=== PATIENT | male | born 1945 | race Caucasian/White ===

== ENCOUNTER 2018-01-16 12:45 | Inpatient (IN) | payer OTHER ==
[~2018-01-16] VITALS: Ht 180.3 cm; Wt 57.7 kg
[2018-01-16] MEDS ORDERED: ONDANSETRON INJ 2 MG/ML 2 ML VIAL IV STA (13:10)
[2018-01-16] MEDS ORDERED: SODIUM CHLORIDE 0.9% 500ML 500 ML IV STA ×2 (13:10→15:13)
[2018-01-16] MEDS ORDERED: GLUCAGON FOR INJ 1 MG VIAL IV STA (13:10)
--- NOTE | 2018-01-16 13:33 | DIAGNOSTIC IMAGING REPORT ---
CHEST ONE VIEW PORTABLE CLINICAL HISTORY: food stuck dysphagia COMPARISON STUDY: 12/04/2015 FINDINGS: Chronic emphysematous and basilar interstitial change. Chronic apical pleural thickening primarily on the right. No new or interval finding. No focal infiltrate. IMPRESSION: Chronic emphysematous and interstitial change. No acute process. The above report was generated using voice recognition software. It may contain grammatical, syntax or spelling errors. Electronically signed by: Tulio Coats M.D. 01/16/2018 1:32 PM Dictated Date/Time: 01/16/2018 1:31 PM
[2018-01-16 14:34] LABS: BASO % 0.2 %; BASO ABS # 0.02 K/uL (0-0.2); EOS % 0.1 %; EOS ABS # 0.01 K/uL (0-0.5); HEMATOCRIT 39.4 % (42-52); HEMOGLOBIN 14.4 g/dL (14.0-18.0); LYMPH % 5.2 %; LYMPH ABS # 0.65 K/uL (1.2-3.4); MEAN CELL VOLUME 92.1 fL (80-100); MEAN CORPUSCULAR HEMOGLOBIN 33.6 pg (25-34); MEAN CORPUSCULAR HGB CONC 36.5 g/dl (32-36); MEAN PLATELET VOLUME 8.4 fL (7.4-10.4); MONO % 11.2 %; NEUT % 82.5 %; NEUT ABS # 10.27 K/uL (1.4-6.5); PLATELET COUNT 243 K/uL (130-400); RED CELL DISTRIBUTION WIDTH CV 12.3 % (11.5-14.5); RED CELL DISTRIBUTION WIDTH SD 41.6 fL (36.4-46.3); WHITE BLOOD COUNT 12.45 K/uL (4.8-10.8)
[2018-01-16 14:59] LABS: CALCIUM 9.6 mg/dl (8.5-10.1); CREATININE 0.67 mg/dl (0.60-1.40); POTASSIUM 4.5 mmol/L (3.5-5.1)
[2018-01-16] MEDS ORDERED: ONDANSETRON INJ 2 MG/ML 2 ML VIAL IV PRN (16:00)
[2018-01-16] MEDS ORDERED: LISI-729 PO (16:14)
[2018-01-16] MEDS ORDERED: LORAZEPAM 2 MG/ML 1 ML VIAL IV PRN (16:15)
[2018-01-16] MEDS ORDERED: GABAPENTIN 600 MG TAB PO SCH (16:15)
[2018-01-16] MEDS ORDERED: GABAPENTIN 600 MG TAB PO ONE (16:30)
[2018-01-16] MEDS ORDERED: LISINOPRIL 5 MG TAB PO ONE (16:30)
[2018-01-16 16:44] LABS: ALBUMIN 3.6 gm/dl (3.4-5.0); TOTAL PROTEIN 7.6 gm/dl (6.4-8.2)
[2018-01-16] MEDS: SODIUM CHLORIDE 0.9% 1000ML 1,000 ML IV SCH (16:45)
[2018-01-16] MEDS ORDERED: THIAMINE HCL INJ 100 MG in SYRINGE 9 ML IV ONE (16:45)
--- NOTE | 2018-01-16 16:59 | EMERGENCY ROOM VISIT NOTE ---
History Report prepared by Ritika: Maribel Marcum Under the Supervision of: Dr. Adonay Lima D.O. First contact with patient: 12:57 Chief Complaint: SORETHROAT Stated Complaint: CANNOT SWALLOW History of Present Illness The patient is a 72 year old male who presents to the Emergency Room with complaints of a constant sore throat since last night. The patient notes that he was eating roast beef when it started to feel like something was lodged in his throat. He states that he tried to make himself vomit, but it did not relieve the feeling. The patient notes that he can swallow his secretions, but can not swallow water, other drinks, or food since last night. He states that when he does try to eat or drink, he vomits. The patient states that the same issue happened three years ago, where he was also eating roast beef. He notes that he had a surgery to remove the food. The patient also complains of middle back pain, which does not change in severity with twisting or turning. He denies chest pain, shortness of breath, weakness, and numbness. Family also notes that he has been very weak recently. He also admits to drinking about 6- 10 beers per night. Source of History: patient Onset: Last Night Position: throat Quality: other (sore) Timing: constant Modifying Factors (Worsening): eating, drinking Associated Symptoms: + back pain, No chest pain, No SOB, No weakness, No numbness Review of Systems See HPI for pertinent positives & negatives. A total of 10 systems reviewed and were otherwise negative. Past Medical & Surgical Medical Problems: (1) Arthritis (2) Hypertension Family History Patient reports no known family medical history. Social History Smoking Status: Never Smoker Alcohol Use: occasionally Marital Status: Housing Status: lives with significant other Occupation Status: employed Current/Historical Medications Scheduled Lisinopril (Prinivil), 5 MG PO DAILY Allergies Coded Allergies: No Known Allergies (Unverified , 01/16/18) Physical Exam Vital Signs Date Time Temp Pulse Resp B/P (MAP) Pulse Ox O2 Delivery O2 Flow Rate FiO2 01/16/18 15:27 89 16 162/88 97 Room Air 01/16/18 14:15 81 18 168/78 97 Room Air 01/16/18 12:50 36.5 66 18 170/87 95 Room Air Physical Exam GENERAL: Cachectic, malnourished, sitting up in bed, disheveled EYE EXAM: normal conjunctiva. OROPHARYNX: no exudate, no erythema, lips, buccal mucosa, and tongue normal and mucous membranes are moist NECK: supple, no nuchal rigidity, no adenopathy, non-tender LUNGS: Clear to auscultation. Normal chest wall mechanics HEART: no murmurs, S1 normal and S2 normal ABDOMEN: abdomen soft, non-tender, normo-active bowel sounds, no masses, no rebound or guarding. BACK: Back is symmetrical on inspection and there is no deformity, no midline tenderness, no CVA tenderness. SKIN: no rashes and no bruising UPPER EXTREMITIES: upper extremities are grossly normal. LOWER EXTREMITIES: No pitting edema. Calves are equal bilaterally. NEURO EXAM: Normal sensorium, cranial nerves II-XII grossly intact, normal speech, no gross weakness of arms, no gross weakness of legs. Medical Decision & Procedures ER Provider Diagnostic Interpretation: Radiology results as stated below per my review and the radiologist's interpretation: CHEST ONE VIEW PORTABLE CLINICAL HISTORY: food stuck dysphagia COMPARISON STUDY: 12/04/2015 FINDINGS: Chronic emphysematous and basilar interstitial change. Chronic apical pleural thickening primarily on the right. No new or interval finding. No focal infiltrate. IMPRESSION: Chronic emphysematous and interstitial change. No acute process. The above report was generated using voice recognition software. It may contain grammatical, syntax or spelling errors. Electronically signed by: Tulio Coats M.D. 01/16/2018 1:32 PM Dictated Date/Time: 01/16/2018 1:31 PM Laboratory Results Test 01/16/18 13:15 01/16/18 13:51 Magnesium Level 2.0 mg/dl (1.8-2.4) Total Bilirubin 0.8 mg/dl (0.2-1) Direct Bilirubin 0.3 mg/dl (0-0.2) Aspartate Amino Transf (AST/SGOT) 41 U/L (15-37) Alanine Aminotransferase (ALT/SGPT) 38 U/L (12-78) Alkaline Phosphatase 102 U/L (45-117) Total Protein 7.6 gm/dl (6.4-8.2) Albumin 3.6 gm/dl (3.4-5.0) Lipase 109 U/L (73-393) Immature Granulocyte % (Auto) 0.8 % White Blood Count 12.45 K/uL (4.8-10.8) Red Blood Count 4.28 M/uL (4.7-6.1) Hemoglobin 14.4 g/dL (14.0-18.0) Hematocrit 39.4 % (42-52) Mean Corpuscular Volume 92.1 fL (80-100) Mean Corpuscular Hemoglobin 33.6 pg (25-34) Mean Corpuscular Hemoglobin Concent 36.5 g/dl (32-36) Platelet Count 243 K/uL (130-400) Mean Platelet Volume 8.4 fL (7.4-10.4) Neutrophils (%) (Auto) 82.5 % Lymphocytes (%) (Auto) 5.2 % Monocytes (%) (Auto) 11.2 % Eosinophils (%) (Auto) 0.1 % Basophils (%) (Auto) 0.2 % Neutrophils # (Auto) 10.27 K/uL (1.4-6.5) Lymphocytes # (Auto) 0.65 K/uL (1.2-3.4) Monocytes # (Auto) 1.40 K/uL (0.11-0.59) Eosinophils # (Auto) 0.01 K/uL (0-0.5) Basophils # (Auto) 0.02 K/uL (0-0.2) Immature Granulocyte # (Auto) 0.10 K/uL (0.00-0.02) Laboratory results per my review. Medications Administered Medications (Trade) Dose Ordered Sig/Jose Route Start Time Stop Time Status Last Admin Dose Admin Glucagon (Glucagon Inj) 1 mg NOW STAT IV 01/16/18 13:10 01/16/18 13:12 DC 01/16/18 13:49 1 MG Ondansetron HCl (Zofran Inj) 4 mg NOW STAT IV 01/16/18 13:10 01/16/18 13:12 DC 01/16/18 13:48 4 MG Sodium Chloride 500 ml @ 999 mls/hr Q31M STAT IV 01/16/18 13:10 01/16/18 13:40 DC 01/16/18 13:48 999 MLS/HR Sodium Chloride 500 ml @ 999 mls/hr Q31M STAT IV 01/16/18 15:13 01/16/18 15:43 DC 01/16/18 15:28 999 MLS/HR ECG Per My Interpretation Indication: back/shoulder pain Rate (beats per minute): 81 Rhythm: sinus rhythm Findings: other (normal axis, no PVCs) ED Course ED COURSE: Vital signs were reviewed and showed situational hypertension. The patients medical record was reviewed The above diagnostic studies were performed and reviewed. ED treatments and interventions as stated above. 1302: The patient was evaluated in room A2. A complete history and physical examination was performed. 1310: Ordered NSS 500 ml @ 999 mls/hr IV, Zofran Inj 4 mg IV, Glucagon 1 mg IV. 1447: I reevaluated the patient at this time. He was able to tolerate a glass of water. 1507: Upon reevaluation, the patient is resting comfortably. I discussed my findings with the patient and he understands and agrees with the treatment plan. Based on the patients age, coexisting illnesses, exam and lab findings the decision to treat as an inpatient was made. The patient remained stable while under my care. The patient will be evaluated for further management. 1510: I discussed the patient's case with Dante Cerna [facility] Hospitalist. She will evaluate the patient for further management. 1513: Ordered NSS 500 ml @ 999 mls/hr IV. Medical Decision Differential Diagnosis includes but is not limited to dehydration, stroke, anemia, hypoglycemia, hyponatremia, hypernatremia, urinary tract infection, pneumonia, bronchitis, sepsis, gastroenteritis, additional abdominal pathology, metabolic abnormalities and infections. Patient is a 9-year-old male who presents the ER for inability to swallow. He notes that last night he was eating beef and he felt something is stuck. Since then he is only been able to tolerate secretions. Onset this he notes has been feeling very weak. He was given IV along with glucagon. He had complete resolution of his symptoms of the food bolus. He has had that before in the past. CBC and BMP shows sodium of 124. Bilirubin, LFTs and lipase was normal. Chest x-ray was unremarkable. Patient/family were updated at bedside. Patient was given fluids. Patient was admitted to internal medicine for further workup. Medication Reconcilliation Current Medication List: was personally reviewed by me Blood Pressure Screening Patient's blood pressure: Elevated blood pressure Blood pressure disposition: Elevated BP felt to be situational Consults Time Called: 1505 Consulting Physician: Dante Cerna Returned Call: 1510 I discussed the patient's case with Dante Cerna. She will evaluate the patient for further management. Impression Primary Impression: Esophageal foreign body Additional Impressions: Hyponatremia Weak Scribe Attestation The scribe's documentation has been prepared under my direction and personally reviewed by me in its entirety. I confirm that the note above accurately reflects all work, treatment, procedures, and medical decision making performed by me. Departure Information Dispostion Being Evaluated By Hospitalist Referrals Naomi Blandon C.R.N.P. (PCP) Patient Instructions My [facility] Problem Qualifiers Primary Impression: Esophageal foreign body Encounter type: initial encounter Qualified Codes: T18.108A - Unspecified foreign body in esophagus causing other injury, initial encounter
--- NOTE | 2018-01-16 17:05 | History and Physical ---
History & Physical Date & Time of Service: Jan 16, 2018 ~ 15:30 Chief Complaint: Cannot Swallow Primary Care Physician: [facility] History of Present Illness Source: patient 72-year-old male who presents the ED with reports of difficulty swallowing. Patient reports he had roast beef for dinner last night. He reports that he had taken a bite and some got stuck in his throat. He reports he was able to take small sips of water however anything larger he would have to spit up. He reports he was able to swallow his own secretions. He tried to self induce vomiting however that did not resolve his symptoms. Symptoms persisted through to today and patient presented to the ER for further evaluation. He denies chest pain and shortness of breath. No lightheadedness, dizziness, diaphoresis , syncopal events. He denies abdominal pain, nausea, vomiting, diarrhea. Patient reports that he has had a poor appetite recently and that he has had a significant amount of weight loss however he is unsure of the exact amount. He also has been having generalized weakness and has had about 4 falls in the past 6-8 weeks. These fall seem to be mechanical. Patient denies any unilateral weakness, numbness, tingling. Patient drinks 6-10 cans of beer per day. He denies any other recent illnesses, fevers, chills. He denies any urinary symptoms. In the ED, patient was given IV glucagon and had improvement in his symptoms. Labs show hyponatremia with sodium of 124. Patient is hemodynamically stable. Past Medical/Surgical History Medical Problems: (1) Arthritis Status: Chronic (2) Hypertension Status: Chronic Family History FH: diabetes mellitus FATHER FH: liver cancer FATHER FH: prostate cancer BROTHER FHx: sudden of unknown cause BROTHER (62) Social History Smoking Status: Former Smoker Alcohol Use: 6-12 cans of beer/day Marital Status: Housing status: lives with family Occupational Status: employed Allergies Coded Allergies: No Known Allergies (Unverified , 01/16/18) Home Medications Scheduled Lisinopril (Prinivil), 5 MG PO DAILY Review of Systems ROS per HPI, all other systems reviewed and negative Physical Exam Vital Signs Date Time Temp Pulse Resp B/P (MAP) Pulse Ox O2 Delivery O2 Flow Rate FiO2 01/16/18 16:35 94 16 158/92 96 Room Air 01/16/18 15:27 89 16 162/88 97 Room Air 01/16/18 14:15 81 18 168/78 97 Room Air 01/16/18 12:50 36.5 66 18 170/87 95 Room Air General Appearance: WD/WN, no apparent distress Head: normocephalic, atraumatic Eyes: normal inspection, EOMI, sclerae normal ENT: hearing grossly normal, + pertinent finding (Mucous membranes moist) Neck: supple, no JVD, trachea midline Respiratory/Chest: lungs clear, normal breath sounds, no respiratory distress Cardiovascular: regular rate, rhythm, no edema, normal peripheral pulses Abdomen/GI: normal bowel sounds, non tender, soft, no organomegaly Extremities/Musculoskelatal: normal inspection, no calf tenderness, normal capillary refill Neurologic/Psych: no motor/sensory deficits, alert, normal mood/affect, oriented x 3 Skin: normal color, warm/dry Diagnostics Laboratory Results Results Past 24 Hours Test 01/16/18 13:15 01/16/18 13:51 01/16/18 16:32 Range/Units White Blood Count 12.45 4.8-10.8 K/uL Red Blood Count 4.28 4.7-6.1 M/uL Hemoglobin 14.4 14.0-18.0 g/dL Hematocrit 39.4 42-52 % Mean Corpuscular Volume 92.1 80-100 fL Mean Corpuscular Hemoglobin 33.6 25-34 pg Mean Corpuscular Hemoglobin Concent 36.5 32-36 g/dl Platelet Count 243 130-400 K/uL Mean Platelet Volume 8.4 7.4-10.4 fL Neutrophils (%) (Auto) 82.5 % Lymphocytes (%) (Auto) 5.2 % Monocytes (%) (Auto) 11.2 % Eosinophils (%) (Auto) 0.1 % Basophils (%) (Auto) 0.2 % Neutrophils # (Auto) 10.27 1.4-6.5 K/uL Lymphocytes # (Auto) 0.65 1.2-3.4 K/uL Monocytes # (Auto) 1.40 0.11-0.59 K/uL Eosinophils # (Auto) 0.01 0-0.5 K/uL Basophils # (Auto) 0.02 0-0.2 K/uL RDW Standard Deviation 41.6 36.4-46.3 fL RDW Coefficient of Variation 12.3 11.5-14.5 % Immature Granulocyte % (Auto) 0.8 % Immature Granulocyte # (Auto) 0.10 0.00-0.02 K/uL Sodium Level 124 136-145 mmol/L Potassium Level 4.5 3.5-5.1 mmol/L Chloride Level 87 98-107 mmol/L Carbon Dioxide Level 29 21-32 mmol/L Anion Gap 8.0 3-11 mmol/L Blood Urea Nitrogen 9 7-18 mg/dl Creatinine 0.67 0.60-1.40 mg/dl Est Creatinine Clear Calc Drug Dose 82.9 ml/min Estimated GFR () 112.8 Estimated GFR (Non- 97.4 BUN/Creatinine Ratio 13.6 10-20 Random Glucose 97 70-99 mg/dl Calcium Level 9.6 8.5-10.1 mg/dl Diagnostic Radiology CXR IMPRESSION: Chronic emphysematous and interstitial change. No acute process. Impression Assessment and Plan HYPONATREMIA -Admit to telemetry -Patient presenting from home with a food bolus, was given IV glucagon in the ED and had resolution of symptoms however incidentally found to be hyponatremic with sodium of 124 -Patient with history of alcohol abuse and also recent poor appetite which are both likely contributing patient's hyponatremia -S/P 1 liter NSS in ED; will start NSS at 100 cc an hour and follow sodium levels closely -Check urine and serum osmolality and urine sodium FOOD BOLUS -Given IV glucagon ED with resolution of symptoms -History of similar event in 11/2017, underwent EGD with retrieval of food bolus , EGD also demonstrated hiatal hernia and esophagitis -patient was to have follow-up EGD in 8 weeks however that was not completed -Consult GI for EGD follow-up ALCOHOL ABUSE -Patient drinks 6-10 cans of beer/day -Patient denies history of withdrawal symptoms in the past -Will start alcohol withdrawal protocol with gabapentin, multivitamin, thiamine , folic acid WEIGHT LOSS -Patient reporting poor appetite and is significant amount of weight loss for the past couple of months -CT ABD/pelvis -GI consult HYPERTENSION -BP is somewhat elevated however improving without intervention -Continue lisinopril DVT PROPHYLAXIS -SQ Lovenox DISPOSITION -In my clinical judgment this beneficiary meets acute admission criteria, established by [facility], that includes being hospitalized through two midnights. ATTENDING ADDENDUM This is a 72-year-old male follows [facility] Presented with choking sensation after eating dinner last night Lab work showed hyponatremia with sodium of 124 Patient admits of drinking heavily Also on intentional weight loss in past few months secondary to poor appetite Hyponatremia: Possibly secondary to alcohol abuse/worsened with poor p.o. intake dehydration IV fluids with normal saline Follow PRP closely Nephrology consult requested Choking with food : Prior episode of similar event on 11/2017: Underwent EGD : Showed hiatal hernia with esophagitis, food bolus removed Patient did not follow-up for EGD in 8 weeks Order for GI eval Speech evaluation to assess dysphagia Alcohol abuse Reports of drinking 610 cans beer every day Last drink was yesterday Monitoring telemetry, with alcohol withdrawal protocol Weight loss Reports of poor appetite CT abdomen pelvis does not show any pathology Possible secondary to chronic alcohol abuse Patient does not recall of having screening colonoscopy GI consulted Please refer to further documentation by Alyson MARTINEZ for discussion of other chronic issues Milli Alex MD Resuscitation Status VTE Prophylaxis Will order VTE Prophylaxis: Yes
[2018-01-16] MEDS: MULTIVITAMIN TAB PO SCH (17:16)
[2018-01-16 17:18] LABS: CALCIUM 8.5 mg/dl (8.5-10.1); CREATININE 0.62 mg/dl (0.60-1.40); POTASSIUM 4.3 mmol/L (3.5-5.1)
[2018-01-16 17:38] VITALS: BP 174/83; PULSE 97; TEMP 36.5; O2SAT 99; BMI 17.6
[2018-01-16] MEDS ORDERED: OPTIRAY 320 IV PRN (17:45)
[2018-01-16 18:04] LABS: SODIUM RANDOM URINE 26 mEq/L
[2018-01-16 18:52] LABS: OSMOLALITY,URINE 427 mOms/kg (500-800)
--- NOTE | 2018-01-16 19:26 | DIAGNOSTIC IMAGING REPORT ---
ABDOMEN AND PELVIS CT WITH IV AND ORAL CONTRAST CT DOSE: 256.09 mGy.cm HISTORY: unintentional weight loss TECHNIQUE: Multiaxial CT images of the abdomen and pelvis were performed following the use of intravenous and oral contrast. A dose lowering technique was utilized adhering to the principles of ALARA. COMPARISON STUDY: None. FINDINGS: Emphysema at the lung bases. Scattered small patchy groundglass densities within the lower lobes, right greater than left. This favors a mild pneumonitis. No pneumoperitoneum. No pneumatosis. Severe degenerative changes within the right hip. Bilateral L5 spondylolysis. There is a right hip effusion. There is hepatic steatosis. No hepatic or splenic masses. The adrenal glands, pancreas, gallbladder, and kidneys are unremarkable. No hydronephrosis. There is a left retroaortic renal vein. A few calcified periportal lymph nodes. Calcified plaque within the normal caliber abdominal aorta. Mild bladder wall thickening. Colonic diverticulosis. No bowel wall thickening or obstruction. Normal appendix. Mild motion artifact. IMPRESSION: 1. No bowel wall thickening or obstruction. 2. Normal appendix. 3. Colonic diverticulosis. 4. Hepatic steatosis. 5. Mild bladder wall thickening. This may be chronic. Recommend correlation with urinalysis. 6. Severe right hip osteoarthritis with associated hip effusion. 7. Small patchy groundglass densities within the bilateral lower lobes. This may represent a low-grade pneumonia. Electronically signed by: Jorgito Aguila M.D. 01/16/2018 7:25 PM Dictated Date/Time: 01/16/2018 7:16 PM
[2018-01-16 20:31] VITALS: BP 164/65; PULSE 90; TEMP 36.4; O2SAT 94
[2018-01-16] MEDS: GABAPENTIN 600MG Q6H DOSE PO SCH (21:09)
[2018-01-16] MEDS: ENOXAPARIN 40 MG/0.4 ML SYR SC SCH (21:12)
[2018-01-16 21:49] LABS: CALCIUM 8.6 mg/dl (8.5-10.1); CREATININE 0.67 mg/dl (0.60-1.40); POTASSIUM 3.5 mmol/L (3.5-5.1)
[2018-01-16 23:27] VITALS: BP 137/69; PULSE 101; TEMP 37.3; O2SAT 95
[2018-01-17 02:24] LABS: HEMOGLOBIN 13.4 g/dL (14.0-18.0); MEAN CELL VOLUME 92.2 fL (80-100); MEAN CORPUSCULAR HEMOGLOBIN 32.5 pg (25-34); MEAN CORPUSCULAR HGB CONC 35.3 g/dl (32-36); MEAN PLATELET VOLUME 8.3 fL (7.4-10.4); PLATELET COUNT 198 K/uL (130-400); RED CELL DISTRIBUTION WIDTH CV 12.3 % (11.5-14.5); RED CELL DISTRIBUTION WIDTH SD 41.8 fL (36.4-46.3); WHITE BLOOD COUNT 13.12 K/uL (4.8-10.8)
[2018-01-17 02:50] LABS: CALCIUM 8.1 mg/dl (8.5-10.1); CREATININE 0.48 mg/dl (0.60-1.40); POTASSIUM 3.9 mmol/L (3.5-5.1)
[2018-01-17] MEDS: GABAPENTIN 600MG Q6H DOSE PO SCH (03:47)
[2018-01-17 04:00] VITALS: BP 161/75; PULSE 86; TEMP 37.1; O2SAT 92
[2018-01-17] MEDS: SODIUM CHLORIDE 0.9% 1000ML 1,000 ML IV SCH ×2 (06:18→17:32)
[2018-01-17 07:37] VITALS: BP 150/74; PULSE 93; TEMP 37.4; O2SAT 93
[2018-01-17] MEDS: THIAMINE HCL INJ 100 MG in SYRINGE 9 ML IV SCH ×2 (08:03→08:25)
[2018-01-17] MEDS: GABAPENTIN 600MG Q8H DOSE PO SCH ×2 (08:03→21:42)
[2018-01-17] MEDS: GUAIFENESIN/DEXTROM SYRUP 100MG/10MG 5ML UDC PO PRN ×2 (08:03→21:43)
[2018-01-17] MEDS: MULTIVITAMIN TAB PO SCH (08:04)
[2018-01-17] MEDS: LISINOPRIL 5 MG TAB PO SCH (08:04)
[2018-01-17 11:08] VITALS: BP 162/68; PULSE 78; TEMP 37; O2SAT 91
--- NOTE | 2018-01-17 12:54 | Progress Note ---
Internal Med Progress Note Date of Service: Jan 17, 2018. Provider Documentation: SUBJECTIVE: Seen and examined at bedside Feels well Denies chest pain, SOB, dizziness, abd pain, odynophagia Family at bedside No complaints OBJECTIVE: Vital Signs-as noted below Physical Exam: General Appearance:Thin, no apparent distress Head: normocephalic, Atraumatic Eyes: normal inspection, EOMI, PERRL Neck: supple, Trachea midline Respiratory/Chest: Normal breath sounds, CTA Cardiovascular: S1, S2, No murmur Abdomen/GI:Soft, Non tender, Bowel sounds present Extremities/Musculoskelatal:normal inspection, no edema Neurologic/Psych:AAOX3, grossly no focal neurological deficits Skin: normal color, warm Lab data as noted below. ASSESSMENT & PLAN: Chronic Hyponatremia Likely secondary to alcohol abuse and partly dehydration, DD:SIADH No confusion issues per family Continue IV fluids for now Check TSH, Free T4 Nephrology consulted Dysphagia Food Bolus S/P IV glucagon ED with resolution of symptoms History of similar event in 11/2015, EGD at the [facility] showed hiatal hernia and esophagitis Needs swallow eval GI consulted Reports history of weight loss. May need colonoscopy as outpatient Alcohol Abuse Patient drinks 6-10 cans of beer a day continue alcohol withdrawal protocol with gabapentin continue multivitamin, thiamine, folic acid HTN: Mildly elevated Asymptomatic Continue lisinopril Right hip osteoarthritis H/O falls Follow up with Orthopedics as outpatient PT/OT DVT Px SQ Lovenox Disposition: PT/OT Vital Signs: Date Time Temp Pulse Resp B/P (MAP) Pulse Ox O2 Delivery O2 Flow Rate FiO2 01/17/18 11:08 37.0 78 18 162/68 (99) 91 Room Air 01/17/18 08:00 Room Air 01/17/18 07:37 37.4 93 18 150/74 (99) 93 Room Air 01/17/18 04:00 37.1 86 19 161/75 (103) 92 Room Air 01/17/18 00:00 Room Air 01/16/18 23:27 37.3 101 16 137/69 (91) 95 01/16/18 20:31 36.4 90 18 164/65 (98) 94 Room Air 01/16/18 20:00 Room Air 01/16/18 17:38 36.5 97 20 174/83 99 Room Air 01/16/18 16:35 94 16 158/92 96 Room Air 01/16/18 15:27 89 16 162/88 97 Room Air 01/16/18 14:15 81 18 168/78 97 Room Air Lab Results: Results Past 24 Hours Test 01/16/18 13:15 01/16/18 13:51 01/16/18 16:32 01/16/18 17:29 Range/Units Magnesium Level 2.0 1.8-2.4 mg/dl Total Bilirubin 0.8 0.2-1 mg/dl Direct Bilirubin 0.3 0-0.2 mg/dl Aspartate Amino Transf (AST/SGOT) 41 15-37 U/L Alanine Aminotransferase (ALT/SGPT) 38 12-78 U/L Alkaline Phosphatase 102 45-117 U/L Total Protein 7.6 6.4-8.2 gm/dl Albumin 3.6 3.4-5.0 gm/dl Lipase 109 73-393 U/L White Blood Count 12.45 4.8-10.8 K/uL Red Blood Count 4.28 4.7-6.1 M/uL Hemoglobin 14.4 14.0-18.0 g/dL Hematocrit 39.4 42-52 % Mean Corpuscular Volume 92.1 80-100 fL Mean Corpuscular Hemoglobin 33.6 25-34 pg Mean Corpuscular Hemoglobin Concent 36.5 32-36 g/dl Platelet Count 243 130-400 K/uL Mean Platelet Volume 8.4 7.4-10.4 fL Neutrophils (%) (Auto) 82.5 % Lymphocytes (%) (Auto) 5.2 % Monocytes (%) (Auto) 11.2 % Eosinophils (%) (Auto) 0.1 % Basophils (%) (Auto) 0.2 % Neutrophils # (Auto) 10.27 1.4-6.5 K/uL Lymphocytes # (Auto) 0.65 1.2-3.4 K/uL Monocytes # (Auto) 1.40 0.11-0.59 K/uL Eosinophils # (Auto) 0.01 0-0.5 K/uL Basophils # (Auto) 0.02 0-0.2 K/uL RDW Standard Deviation 41.6 36.4-46.3 fL RDW Coefficient of Variation 12.3 11.5-14.5 % Immature Granulocyte % (Auto) 0.8 % Immature Granulocyte # (Auto) 0.10 0.00-0.02 K/uL Sodium Level 124 126 136-145 mmol/L Potassium Level 4.5 4.3 3.5-5.1 mmol/L Chloride Level 87 92 98-107 mmol/L Carbon Dioxide Level 29 26 21-32 mmol/L Anion Gap 8.0 8.0 3-11 mmol/L Blood Urea Nitrogen 9 9 7-18 mg/dl Creatinine 0.67 0.62 0.60-1.40 mg/dl Est Creatinine Clear Calc Drug Dose 82.9 89.5 ml/min Estimated GFR () 112.8 116.5 Estimated GFR (Non- 97.4 100.5 BUN/Creatinine Ratio 13.6 14.1 10-20 Random Glucose 97 89 70-99 mg/dl Calcium Level 9.6 8.5 8.5-10.1 mg/dl Prothrombin Time 11.0 9.0-12.0 SECONDS Prothromb Time International Ratio 1.0 0.9-1.1 Osmolality 263 280-300 mOsm/kg Ethyl Alcohol mg/dL < 3.0 0-3 mg/dl Urine Osmolality 427 500-800 mOms/kg Urine Random Sodium 26 mEq/L Test 01/16/18 21:05 01/17/18 02:03 Range/Units Sodium Level 125 125 136-145 mmol/L Potassium Level 3.5 3.9 3.5-5.1 mmol/L Chloride Level 90 92 98-107 mmol/L Carbon Dioxide Level 28 27 21-32 mmol/L Anion Gap 6.0 6.0 3-11 mmol/L Blood Urea Nitrogen 9 7 7-18 mg/dl Creatinine 0.67 0.48 0.60-1.40 mg/dl Est Creatinine Clear Calc Drug Dose 82.9 115.7 ml/min Estimated GFR () 112.8 129.4 Estimated GFR (Non- 97.4 111.7 BUN/Creatinine Ratio 12.7 14.3 10-20 Random Glucose 157 91 70-99 mg/dl Calcium Level 8.6 8.1 8.5-10.1 mg/dl White Blood Count 13.12 4.8-10.8 K/uL Red Blood Count 4.12 4.7-6.1 M/uL Hemoglobin 13.4 14.0-18.0 g/dL Hematocrit 38.0 42-52 % Mean Corpuscular Volume 92.2 80-100 fL Mean Corpuscular Hemoglobin 32.5 25-34 pg Mean Corpuscular Hemoglobin Concent 35.3 32-36 g/dl RDW Standard Deviation 41.8 36.4-46.3 fL RDW Coefficient of Variation 12.3 11.5-14.5 % Platelet Count 198 130-400 K/uL Mean Platelet Volume 8.3 7.4-10.4 fL
--- NOTE | 2018-01-17 14:16 | Gastrointestinal Consultation ---
Gastrointestinal Consultation Date of Consultation: Jan 17, 2018 Attending Physician: Dr Adan Segura Consulting Physician: Dr Manoj Mejia Reason for Consultation: dysphagia, wt loss History of Present Illness CC food stuck HPI with patient for H and P. Pt seen by me when he came to ER 11/2015 for food bolus impaction. EGD at that time food in esophagus removed, grade B esophagitis, and erythema of antrum, 2 cm HH and duodenal bulb erosions. Repeat EGD recommended in 8 weeks but not done. Pt has has not had problems getting food from mouth into esophagus but has has had solid bolus slowing since then. However, yesterday is the first time since 2015 food stuck to the point he needed to go to ER. He was eating roast beef and could handle saliva but only could drink small sips. He was given glucagon and symptoms resolved but admitted secondary to low Na. He drinks 6-10 beers daily. He states has lost 9 lbs of wt in 2 weeks. States not eating well but denies nausea or abd pain. No change in bowels. No bloody nor black stools. CXR on admit COPD and chronic interstitial changes. CT a/p COPD, DJD, colon diverticulosis, fatty liver. Hgb on admit normal with slight drop post IVF. Some weakness also recently with falling. Past Medical/Surgical History Medical Problems: (1) Esophageal foreign body Status: Acute (2) Hyponatremia Status: Acute (3) Weak Status: Acute Family History FH: diabetes mellitus FATHER FH: liver cancer FATHER FH: prostate cancer BROTHER FHx: sudden of unknown cause BROTHER (62) Social History Smoking Status: Former Smoker Alcohol Use: heavy Marital Status: Housing Status: lives with significant other Occupation Status: employed Allergies Coded Allergies: No Known Allergies (Unverified , 01/16/18) Current Medications Home Meds and Scripts Medications Dose Route/Sig Max Daily Dose Days Date Category Prinivil (Lisinopril) 5 Mg Tab 5 Mg PO DAILY 01/16/18 Reported Review of Systems See HPI otherwise 10 ROS neg Physical Exam Date Time Temp Pulse Resp B/P (MAP) Pulse Ox O2 Delivery O2 Flow Rate FiO2 01/17/18 11:08 37.0 78 18 162/68 (99) 91 Room Air 01/17/18 08:00 Room Air 01/17/18 07:37 37.4 93 18 150/74 (99) 93 Room Air 01/17/18 04:00 37.1 86 19 161/75 (103) 92 Room Air 01/17/18 00:00 Room Air 01/16/18 23:27 37.3 101 16 137/69 (91) 95 01/16/18 20:31 36.4 90 18 164/65 (98) 94 Room Air 01/16/18 20:00 Room Air 01/16/18 17:38 36.5 97 20 174/83 99 Room Air 01/16/18 16:35 94 16 158/92 96 Room Air 01/16/18 15:27 89 16 162/88 97 Room Air 01/16/18 14:15 81 18 168/78 97 Room Air General Appearance: WD/WN, no apparent distress Eyes: normal inspection, PERRL ENT: normal ENT inspection, hearing grossly normal Neck: supple, trachea midline Respiratory/Chest: lungs clear, no respiratory distress Cardiovascular: no edema, no murmur Abdomen: normal bowel sounds, non tender, soft, no organomegaly Extremities: non-tender 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, normal mood/affect, oriented x 3 Skin: normal color, warm/dry Laboratory Results Last 24 Hours Test 01/16/18 16:32 01/16/18 17:29 01/16/18 21:05 01/17/18 02:03 Prothrombin Time 11.0 SECONDS Prothromb Time International Ratio 1.0 Sodium Level 126 mmol/L 125 mmol/L 125 mmol/L Potassium Level 4.3 mmol/L 3.5 mmol/L 3.9 mmol/L Chloride Level 92 mmol/L 90 mmol/L 92 mmol/L Carbon Dioxide Level 26 mmol/L 28 mmol/L 27 mmol/L Anion Gap 8.0 mmol/L 6.0 mmol/L 6.0 mmol/L Blood Urea Nitrogen 9 mg/dl 9 mg/dl 7 mg/dl Creatinine 0.62 mg/dl 0.67 mg/dl 0.48 mg/dl Est Creatinine Clear Calc Drug Dose 89.5 ml/min 82.9 ml/min 115.7 ml/min Estimated GFR () 116.5 112.8 129.4 Estimated GFR (Non- 100.5 97.4 111.7 BUN/Creatinine Ratio 14.1 12.7 14.3 Random Glucose 89 mg/dl 157 mg/dl 91 mg/dl Osmolality 263 mOsm/kg Calcium Level 8.5 mg/dl 8.6 mg/dl 8.1 mg/dl Ethyl Alcohol mg/dL < 3.0 mg/dl Urine Osmolality 427 mOms/kg Urine Random Sodium 26 mEq/L White Blood Count 13.12 K/uL Red Blood Count 4.12 M/uL Hemoglobin 13.4 g/dL Hematocrit 38.0 % Mean Corpuscular Volume 92.2 fL Mean Corpuscular Hemoglobin 32.5 pg Mean Corpuscular Hemoglobin Concent 35.3 g/dl RDW Standard Deviation 41.8 fL RDW Coefficient of Variation 12.3 % Platelet Count 198 K/uL Mean Platelet Volume 8.3 fL Test 01/17/18 13:58 Impression esophageal dysphagia--recommend EGD with prn dilatation to start instead of videofluoro study and barium esophagram so will schedule that with DR Farley tomorrow. Proc and risks explained which include but not limited to med reaction , bleeding, perforation, aspiration, and missed lesions. wt loss--CT neg. See what EGD shows but may need outpt colonoscopy normocytic anemia--mild--check Fe sat, B12, folate, and ferritin hx of esophagitis---PPI ETOH abuse--recommend he stop Hyponatremia--per primary I am going off service tomorrow 01/[address] Farley is assuming GI care then.
[2018-01-17 14:36] LABS: CALCIUM 8.6 mg/dl (8.5-10.1); CREATININE 0.43 mg/dl (0.60-1.40)
[2018-01-17 14:50] VITALS: Ht 180.3 cm; Wt 57.7 kg
[2018-01-17] MEDS ORDERED: FUROSEMIDE INJ 40 MG in SYRINGE 0 ML IV ONE (15:00)
[2018-01-17 16:12] VITALS: BP 168/81; PULSE 84; TEMP 36.2; O2SAT 97
[2018-01-17 16:48] LABS: SODIUM RANDOM URINE 105 mEq/L
[2018-01-17 16:50] LABS: OSMOLALITY,URINE 311 mOms/kg (500-800)
[2018-01-17 19:32] LABS: CALCIUM 8.8 mg/dl (8.5-10.1); CREATININE 0.52 mg/dl (0.60-1.40); POTASSIUM 3.7 mmol/L (3.5-5.1)
[2018-01-17 20:16] VITALS: BP 144/73; PULSE 80; TEMP 36.9; O2SAT 92
[2018-01-17] MEDS: ENOXAPARIN 40 MG/0.4 ML SYR SC SCH (21:43)
[2018-01-17] MEDS: PANTOprazole SOD 40 MG TAB PO SCH (21:43)
[2018-01-17] MEDS: SODIUM CHLORIDE 1 GM TAB PO SCH (21:45)
--- NOTE | 2018-01-17 23:10 | NEPHROLOGY CONSULTATION ---
DATE OF CONSULTATION: 01/17/2018 REASON FOR CONSULT: Hyponatremia. HISTORY OF PRESENT ILLNESS: Patient is a 72-year-old male who presented to the Emergency Department yesterday with reports of dysphagia. Apparently, he had a roast beef for dinner last night and he felt the food got stuck in his food pipe. He was not having choking or respiratory symptoms at the time. Symptoms persisted, so he presented to the Emergency Department. Serum sodium was noted to be low at 124. Patient and his do not think that he has had a history of low Sodium in the past. [facility] and gets full panel of blood work at least once a year and was never told he had low sodium. He drinks about 10 beers every single day. For the last few weeks, he has been having multiple falls without syncope. He has had slightly poor appetite and about 10 pound weight loss in the last few weeks. Since admission, he has received normal saline--now about 24 hrs but it does not seem to have changed the serum sodium at all. The last 5 serum sodium reading has been in a pretty tight range of 124-126. He is not in fluid restriction as of now. PAST MEDICAL/SURGICAL HISTORY: Arthritis, hypertension, and alcohol abuse. FAMILY HISTORY: Positive for diabetes, liver cancer, prostate cancer, sudden cardiac . SOCIAL HISTORY: Former smoker. Alcohol ongoing about 10 beers every single day. , lives with family. Employed. ALLERGIES: No known drug allergies. REVIEW OF SYSTEMS: As detailed in the HPI, unless stated otherwise. 12 systems reviewed and negative. MEDICATIONS: Home medications include just lisinopril 5 mg daily. PHYSICAL EXAMINATION: VITAL SIGNS: Blood pressure 162/60, 91% on room air, pulse rate 78 per minute, temperature 37 degrees Celsius. GENERAL: Elderly white male who is not in any distress. He is awake, alert, oriented x3. HEENT: Mucous membrane is moist. NECK: Supple. No jugular venous distention. CHEST: Bilateral prolonged expiration. Occasional wheezing. CARDIOVASCULAR SYSTEM: S1 and S2 distant. No edema. Normal pulses. GASTROINTESTINAL: Abdomen is soft and nontender. EXTREMITIES: No edema. NEUROLOGIC: Awake, alert, oriented x3. Normal speech. No motor or sensory deficit. SKIN: Normal color, warm, dry. LABORATORY DATA: Serum sodium 124 at the time of admission, and in about 24-hour time period, it has gone up by 2 and the most recent one is 126. Potassium 4.0, BUN 4, creatinine 0.4, serum osmolality 260, urine osmolality 427, urine sodium 26. IMAGING: Abdominal and pelvis CT scan was reviewed in detail. Chest x-ray does not show congestive heart failure, but it does show some chronic emphysematous and interstitial changes suggestive of COPD. ASSESSMENT AND PLAN: A 72-year-old male whom I have been consulted for evaluation and treatment of hyponatremia. Hyponatremia: Serum osm is low so this is true hYponatremia. he appears euvolemic . Urine osmolality is definitely high suggestive of SIADH, but then, the urine sodium was initially low, which goes more in favor of true Sodium deficit. . In any case, he has received IV fluid for almost a day now with no change in serum Sodium. At this time, his blood pressure is running high, so I do not think he is volume depleted anymore. The etiology of hyponatremia is probably multifactorial. New onset nausea and pain can cause SIADH, especially in susceptible patients with COPD. On top of that, he drinks a lot of beer, as much as 10 beers every single day. he most likely does not eat enough solid food so creating mismtach with liquid and solute load. This is very high amount both from fluid standpoint as well as alcohol standpoint in a 72-year-old male. I did discuss this with the patient as well as his that he really has to cut down or stop drinking so much beer. Because the urine osmolality is high, I would give him Lasix 40 mg IV x1 dose now to help with the free water diuresis. Will also place him on a fluid restriction of 1800 mL/day. serum sodium of 126 is unlikely to cause any type of symptoms. We will do serial blood work. The next blood work will be done around 7 o'clock, and we will continue to adjust the medication based on the serum sodium readings. Serum Sodium still 126--stable. 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 Chronic Hyponatremia. need to evaluate for Some malignancy given his heavy alcohol and Smoking history . 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 Thank you very much. [facility]
[2018-01-18] VITALS (9 sets, daily range): BP systolic 147–165; BP diastolic 71–84; PULSE 62–99; TEMP 36.7–37.1; O2SAT 91–95
[2018-01-18] MEDS: SODIUM CHLORIDE 1 GM TAB PO SCH ×2 (06:00→13:58)
[2018-01-18] MEDS: GABAPENTIN 600MG Q8H DOSE PO SCH (06:00)
[2018-01-18 06:18] LABS: HEMATOCRIT 37.9 % (42-52); HEMOGLOBIN 13.4 g/dL (14.0-18.0); MEAN CELL VOLUME 91.8 fL (80-100); MEAN CORPUSCULAR HEMOGLOBIN 32.4 pg (25-34); MEAN CORPUSCULAR HGB CONC 35.4 g/dl (32-36); MEAN PLATELET VOLUME 8.1 fL (7.4-10.4); PLATELET COUNT 189 K/uL (130-400); RED CELL DISTRIBUTION WIDTH CV 12.1 % (11.5-14.5); RED CELL DISTRIBUTION WIDTH SD 41.1 fL (36.4-46.3); WHITE BLOOD COUNT 11.29 K/uL (4.8-10.8)
[2018-01-18 07:00] LABS: CALCIUM 8.5 mg/dl (8.5-10.1); CREATININE 0.43 mg/dl (0.60-1.40); POTASSIUM 3.7 mmol/L (3.5-5.1)
[2018-01-18] MEDS: THIAMINE HCL INJ 100 MG in SYRINGE 9 ML IV SCH (07:57)
[2018-01-18] MEDS: PANTOprazole SOD 40 MG TAB PO SCH ×2 (08:55→20:37)
[2018-01-18] MEDS: MULTIVITAMIN TAB PO SCH (08:55)
[2018-01-18] MEDS: LISINOPRIL 5 MG TAB PO SCH (08:56)
[2018-01-18] MEDS: ACETAMINOPHEN 325 MG TAB PO PRN ×2 (09:00→19:34)
[2018-01-18] MEDS ORDERED: SODIUM CHLORIDE 0.9% 1000ML 1,000 ML IV SCH (10:45)
--- NOTE | 2018-01-18 11:58 | PROGRESS NOTE ---
DATE: 01/18/2018 SUBJECTIVE: No new issues overnight. Sodium seems to be stuck at the very tight range of 126 for the last 3 readings. Whether we give normal saline or Lasix, it seems to be the same. He is making urine and made 1400 mL. OBJECTIVE: GENERAL: He is not in any distress. He is currently n.p.o. and supposed to have endoscopy later today. He is walking in the hallways. VITAL SIGNS: Blood pressure is 151/71, 92% on room air, pulse rate 86 per minute, temperature 36.8. HEENT: Mucous membranes moist. NECK: Supple. No jugular venous distention. CHEST: Bilateral expiratory wheezing and decreased breath sounds. CARDIOVASCULAR: S1 and S2, regular. ABDOMEN: Soft, nontender. EXTREMITIES: Shows no edema. LABORATORY TESTS: From this morning show sodium 126, potassium 3.7, BUN 6, creatinine 0.43, magnesium 1.7. Iron 18, transferrin saturation 10%. Hemoglobin 13.4. TSH 0.649, T4 is 1.43. ASSESSMENT AND PLAN: A 72-year-old male whom I have been consulted for evaluation and treatment of hyponatremia. Based on the fact that serum sodium has remained absolutely stable at 126 for almost 36 hours whether we give normal saline or some Lasix, it appears this is not a new problem. This is chronic problem and in fact he has had low sodium for the last 10 years. The etiology of the low sodium is secondary to very excessive intake of liquid as he drinks about 10-12 beer every single day. His salt and protein intake is very low as evidenced by super low BUN. He definitely has some urinary dilution problem consistent with SIADH. The combination of very excessive liquid drinking with very low solid food intake combined with urinary dilution problem is the cause of his chronic hyponatremia. As long as his serum sodium is more than 125, he does not need to be in the hospital. We may not be able to get his serum sodium normal and we do not have to. Case was discussed in detail with the primary service. The patient is currently n.p.o. While he is n.p.o., we will give him normal saline at 75 mL per hour, but once he starts eating, then it can be stopped. He needs to be on fluid restriction 1800 mL per day. Normally, the treatment of chronic SIADH is salt tablet with Lasix. For the time being, continue salt tablet 1 g twice daily. MTDD
[2018-01-18] MEDS ORDERED: MAGNESIUM SULFATE 1GM / D5W 100 ML IV ONE (12:00)
--- NOTE | 2018-01-18 12:03 | Progress Note ---
Internal Med Progress Note Date of Service: Jan 18, 2018. Provider Documentation: SUBJECTIVE: Seen and examined at bedside Planned for EGD today No complaints Denies chest pain, SOB, dizziness, abd pain, odynophagia OBJECTIVE: Vital Signs-as noted below Physical Exam: General Appearance:Thin, no apparent distress Head: normocephalic, Atraumatic Eyes: normal inspection, EOMI, PERRL Neck: supple, Trachea midline Respiratory/Chest: Normal breath sounds, CTA Cardiovascular: S1, S2, No murmur Abdomen/GI:Soft, Non tender, Bowel sounds present Extremities/Musculoskelatal:normal inspection, no edema Neurologic/Psych:AAOX3, grossly no focal neurological deficits Skin: normal color, warm Lab data as noted below. ASSESSMENT & PLAN: Chronic Hyponatremia Likely secondary to alcohol abuse, Poor oral intake, SIADH No confusion issues per family Received IV fluids and IV Lasix---unchanged sodium levels Continue fluid restriction Thyroid function near normal Monitor sodium levels Appreciate Nephrology Input Consider CT chest to R/O cancer given H/O smoking and Possibly SIADH Esophageal Dysphagia Food Bolus S/P IV glucagon ED with resolution of symptoms History of similar event in 11/2015, EGD at the [facility] showed hiatal hernia and esophagitis Planned for EGD today Appreciate GI Input Reports history of weight loss. Needs colonoscopy as outpatient Alcohol Abuse Patient drinks 6-10 cans of beer a day continue alcohol withdrawal protocol with gabapentin continue multivitamin, thiamine, folic acid HTN: Mildly elevated Asymptomatic Continue lisinopril Hypomagnesemia: Replace Mag monitor Right hip osteoarthritis H/O falls Follow up with Orthopedics as outpatient PT/OT DVT Px SQ Lovenox Disposition: PT/OT Vital Signs: Date Time Temp Pulse Resp B/P (MAP) Pulse Ox O2 Delivery O2 Flow Rate FiO2 01/18/18 16:10 83 20 171/77 (108) 95 Room Air 01/18/18 16:00 89 20 157/88 (111) 94 Room Air 01/18/18 15:53 94 20 146/78 (100) 95 Room Air 01/18/18 15:43 93 20 158/78 (104) 98 Partial Rebreather 5 01/18/18 14:26 36.9 75 20 144/80 (101) 95 Room Air 01/18/18 11:31 36.8 77 18 151/71 (97) 93 01/18/18 07:50 92 Room Air 01/18/18 07:25 36.8 86 18 151/71 (97) 91 01/18/18 04:00 37.1 87 18 154/82 (106) 93 Room Air 01/18/18 00:24 37.1 85 18 149/73 (98) 94 Room Air 01/18/18 00:00 Room Air 01/17/18 20:30 Room Air 01/17/18 20:16 36.9 80 18 144/73 (96) 92 Room Air Lab Results: Results Past 24 Hours Test 01/17/18 19:03 01/18/18 06:05 Range/Units Sodium Level 126 126 136-145 mmol/L Potassium Level 3.7 3.7 3.5-5.1 mmol/L Chloride Level 88 90 98-107 mmol/L Carbon Dioxide Level 33 30 21-32 mmol/L Anion Gap 4.0 6.0 3-11 mmol/L Blood Urea Nitrogen 7 6 7-18 mg/dl Creatinine 0.52 0.43 0.60-1.40 mg/dl Est Creatinine Clear Calc Drug Dose 109.6 132.5 ml/min Estimated GFR () 125.2 135.4 Estimated GFR (Non- 108.0 116.8 BUN/Creatinine Ratio 12.4 12.9 10-20 Random Glucose 90 90 70-99 mg/dl Calcium Level 8.8 8.5 8.5-10.1 mg/dl White Blood Count 11.29 4.8-10.8 K/uL Red Blood Count 4.13 4.7-6.1 M/uL Hemoglobin 13.4 14.0-18.0 g/dL Hematocrit 37.9 42-52 % Mean Corpuscular Volume 91.8 80-100 fL Mean Corpuscular Hemoglobin 32.4 25-34 pg Mean Corpuscular Hemoglobin Concent 35.4 32-36 g/dl RDW Standard Deviation 41.1 36.4-46.3 fL RDW Coefficient of Variation 12.1 11.5-14.5 % Platelet Count 189 130-400 K/uL Mean Platelet Volume 8.1 7.4-10.4 fL Magnesium Level 1.7 1.8-2.4 mg/dl Iron Level 18 35-175 mcg/dl Transferrin 125 200-360 mg/dl Transferrin % Saturation 10 20-50 % Ferritin 945.2 8.0-388.0 ng/ml Vitamin B12 Level 846 211-911 pg/mL Folate 14.74 >5.38 ng/mL Thyroid Stimulating Hormone (TSH) 0.649 0.300-4.500 uIu/ml Free Thyroxine 1.43 0.80-1.60 ng/dl
--- NOTE | 2018-01-18 14:13 | History & Physical Bridge Note ---
H&P Re-Evaluation Bridge Note: I have examined the patient, reviewed the History & Physical and in the interval since the performance of the History & Physical I have noted the following changes of clinical significance: No changes noted EGD for dysphagia
[2018-01-18] MEDS ORDERED: LIDOCAINE HCL 2% 2 ML VIAL (20MG/ML) ONE (15:03)
[2018-01-18] MEDS ORDERED: MIDAZOLAM HCL 1 MG/ML 2ML VIAL ONE (15:03)
[2018-01-18] MEDS ORDERED: PROPOFOL IV EMULSION 10 MG/ML 20 ML VIAL ONE (15:03)
--- NOTE | 2018-01-18 15:36 | Anesthesiology Progress Note ---
Anesthesia Post Op Note Date & Time Jan 18, 2018 at 15:36 Vital Signs Pain Intensity: 6.0 Vital Signs Past 12 Hours Date Time Temp Pulse Resp B/P (MAP) Pulse Ox O2 Delivery O2 Flow Rate FiO2 01/18/18 14:26 36.9 75 20 144/80 (101) 95 Room Air 01/18/18 11:31 36.8 77 18 151/71 (97) 93 01/18/18 07:50 92 Room Air 01/18/18 07:25 36.8 86 18 151/71 (97) 91 01/18/18 04:00 37.1 87 18 154/82 (106) 93 Room Air Notes Mental Status: alert / awake / arousable, participated in evaluation Pt Amnestic to Procedure: Yes Nausea / Vomiting: adequately controlled Pain: adequately controlled Airway Patency, RR, SpO2: stable & adequate BP & HR: stable & adequate Hydration State: stable & adequate Anesthetic Complications: no major complications apparent
--- NOTE | 2018-01-18 15:46 | GI REPORT ---
Patient Name: Aman Ramsey Procedure Date: 01/18/2018 3:03 PM Date of : 1945 Admit Type: Inpatient Age: 72 Gender: Male Attending MD: Steven Farley MD Procedure: Upper GI endoscopy Providers: Steven Farley MD Referring MD: Adan Segura Md Indications: Dysphagia Medicines: Propofol per Anesthesia Complications: No immediate complications. Estimated blood loss: Minimal. Estimated Blood Loss: Estimated blood loss was minimal. Procedure: Pre-Anesthesia Assessment: - Prior to the procedure, a History and Physical was performed, and patient medications and allergies were reviewed. The patient's tolerance of previous anesthesia was also reviewed. The risks and benefits of the procedure and the sedation options and risks were discussed with the patient. All questions were answered, and informed consent was obtained. Prior Anticoagulants: The patient has taken no previous anticoagulant or antiplatelet agents. ASA Grade Assessment: III - A patient with severe systemic disease. After reviewing the risks and benefits, the patient was deemed in satisfactory condition to undergo the procedure. After obtaining informed consent, the endoscope was passed under direct vision. Throughout the procedure, the patient's blood pressure, pulse, and oxygen saturations were monitored continuously. The scope was introduced through the mouth, and advanced to the second part of duodenum. The upper GI endoscopy was accomplished without difficulty. The patient tolerated the procedure well. Findings: The upper third of the esophagus and middle third of the esophagus were normal. LA Grade C (one or more mucosal breaks continuous between tops of 2 or more mucosal folds, less than 75% circumference) esophagitis with no bleeding was found 41 to 42 cm from the incisors. Biopsies were taken with a cold forceps for histology after dilation below was performed. Verification of patient identification for the specimen was done by the physician and technician test systems using the patient's name and medical record number. One benign-appearing, intrinsic stenosis was found 42 cm from the incisors. This stenosis was mildly severe and measured 1.2 cm (inner diameter) x less than one cm (in length). The stenosis was traversed. A guidewire was placed and the scope was withdrawn. Dilation was performed with a Savary dilator with no resistance at 45 Fr, 48 Fr and 51 Fr. The entire examined stomach was normal. The examined duodenum was normal. The cardia and gastric fundus were normal on retroflexion. Retained gastric contents are not identified on this exam. Impression: - Normal upper third of esophagus and middle third of esophagus. - LA Grade C reflux esophagitis. Biopsied. - Benign-appearing esophageal stenosis. Dilated. - Normal stomach. - Normal examined duodenum. Recommendation: - Resume regular diet. - [facility]. - Advance diet as tolerated. - Continue present medications. - Use a proton pump inhibitor PO BID indefinitely. - Repeat upper endoscopy for surveillance based on pathology results. MD Steven Huang MD 01/18/2018 3:45:27 PM This report has been signed electronically. Note Initiated On: 01/18/2018 3:03 PM Number of Addenda: 0 I attest to the content of the Intraoperative Record and orders documented therein, exceptions below {[id number]}
--- NOTE | 2018-01-18 15:58 | GASTROENTEROLOGY PROGRESS NOTE ---
DATE: 01/18/2018 This is a gastroenterology inpatient update note. SUBJECTIVE: Patient underwent upper endoscopy today. There was evidence for a nonobstructing stenosis, presumably due to reflux disease with evidence of esophagitis above this region. This was dilated with 45, 48, 51-Gibraltarian dilators without resistance. Biopsies were also taken of the region esophagitis and narrowing. Stomach and duodenum were normal. IMPRESSION AND PLAN: Patient with active esophagitis and would benefit from prolonged proton pump inhibitor therapy. Would recommend omeprazole or equivalent 40 mg twice daily for at least several months and can be reduced at some point. The patient also will need an outpatient colonoscopy eventually and this can be arranged through the GI office. Patient should have followup with Dr. Mejia in GI clinic at [facility] who has seen the patient in the past. All questions answered. HENOK
[2018-01-18] MEDS: GABAPENTIN 600MG Q12H DOSE PO SCH (18:08)
[2018-01-18 19:01] LABS: CALCIUM 8.6 mg/dl (8.5-10.1); CREATININE 0.56 mg/dl (0.60-1.40)
[2018-01-18] MEDS ORDERED: POTASSIUM CHLORIDE 10 MEQ TABCR PO ONE ×2 (20:00→21:00)
[2018-01-18] MEDS: ENOXAPARIN 40 MG/0.4 ML SYR SC SCH (20:38)
[2018-01-19 00:08] VITALS: O2SAT 94
[2018-01-19 04:28] VITALS: BP 158/83; PULSE 58; TEMP 36.9; O2SAT 95
[2018-01-19 05:49] LABS: HEMATOCRIT 36.1 % (42-52); HEMOGLOBIN 12.7 g/dL (14.0-18.0); MEAN CELL VOLUME 92.1 fL (80-100); MEAN CORPUSCULAR HEMOGLOBIN 32.4 pg (25-34); MEAN CORPUSCULAR HGB CONC 35.2 g/dl (32-36); MEAN PLATELET VOLUME 8.4 fL (7.4-10.4); PLATELET COUNT 196 K/uL (130-400); RED CELL DISTRIBUTION WIDTH CV 12.1 % (11.5-14.5); RED CELL DISTRIBUTION WIDTH SD 40.9 fL (36.4-46.3); WHITE BLOOD COUNT 11.38 K/uL (4.8-10.8)
[2018-01-19] MEDS: GABAPENTIN 600MG Q12H DOSE PO SCH (05:50)
[2018-01-19] MEDS: GUAIFENESIN/DEXTROM SYRUP 100MG/10MG 5ML UDC PO PRN ×2 (05:50→08:02)
[2018-01-19] MEDS: SODIUM CHLORIDE 1 GM TAB PO SCH (05:51)
[2018-01-19 06:24] LABS: CALCIUM 8.4 mg/dl (8.5-10.1); CREATININE 0.37 mg/dl (0.60-1.40); POTASSIUM 3.8 mmol/L (3.5-5.1)
[2018-01-19 07:25] VITALS: BP 163/81; PULSE 90; TEMP 36.7; O2SAT 93
[2018-01-19] MEDS: LISINOPRIL 5 MG TAB PO SCH (08:03)
[2018-01-19] MEDS: THIAMINE HCL INJ 100 MG in SYRINGE 9 ML IV SCH (08:03)
[2018-01-19] MEDS: PANTOprazole SOD 40 MG TAB PO SCH (08:03)
[2018-01-19] MEDS: MULTIVITAMIN TAB PO SCH (08:03)
--- NOTE | 2018-01-19 10:23 | Nephrology Progress Note ---
Nephrology Progress Note Date of Service: Jan 19, 2018. Subjective Patient with Hypovolemic hyponatremia. Patient is seated comfortably in bed. no issues over night. sodium improved from previous baseline to 129. tolerating fluid restriction. reports that he was able to "eat a good meal" this morning but notes that he became full quickly. urine output ok. no SOB, confusion, chest pain, nausea. Objective Date Time Temp Pulse Resp B/P (MAP) Pulse Ox O2 Delivery O2 Flow Rate FiO2 01/19/18 07:25 36.7 90 18 163/81 (108) 93 Room Air 01/19/18 04:28 36.9 58 18 158/83 (108) 95 Room Air 01/19/18 00:08 94 Room Air 01/18/18 23:48 37.0 62 18 147/79 (101) 95 Room Air 01/18/18 19:39 36.8 99 18 165/83 (110) 95 Room Air 01/18/18 16:51 36.7 79 18 161/84 (109) 93 Room Air 01/18/18 16:10 83 20 171/77 (108) 95 Room Air 01/18/18 16:00 94 Room Air 01/18/18 16:00 89 20 157/88 (111) 94 Room Air 01/18/18 15:53 94 20 146/78 (100) 95 Room Air 01/18/18 15:43 93 20 158/78 (104) 98 Partial Rebreather 5 01/18/18 14:26 36.9 75 20 144/80 (101) 95 Room Air 01/18/18 11:31 36.8 77 18 151/71 (97) 93 Physical Exam: General: Alert, no distress, thin Head: Normocephalic, No lesions ENT: no scleral icterus, moist mucosal membranes Neck: Supple, no adenopathy Heart: Regular rate and rhythm, no murmurs, no gallops Lungs: reduced air movement. left lower>right lower lung Abdomen: Soft, Nontender, nondistended, +Bowel Sounds Extremities: No joint deformities, effusion, or inflammation, no edema, no clubbing Neuro Exam: Alert and oriented x 3 with fluent speech, no focal motor deficits, limited insight. Current Inpatient Medications Medications (Trade) Dose Ordered Sig/Jose Route Start Time Stop Time Status Last Admin Dose Admin Enoxaparin Sodium (Lovenox Inj) 40 mg QPM SC 01/16/18 21:00 02/15/18 20:59 01/18/18 20:38 40 MG Acetaminophen (Tylenol Tab) 650 mg Q4H PRN PO 01/16/18 16:00 02/15/18 15:59 01/18/18 19:34 650 MG Ondansetron HCl (Zofran Inj) 4 mg Q6H PRN IV 01/16/18 16:00 02/15/18 15:59 Thiamine HCl 100 mg/Syringe 10 ml @ 2 mls/min Q24H IV 01/17/18 09:00 02/16/18 08:59 01/19/18 08:03 2 MLS/MIN Lorazepam (Ativan Inj) 1 mg ONE PRN IV 01/16/18 16:15 Multivitamins (Multivitamin Tab) 1 tab QAM PO 01/16/18 16:15 02/15/18 16:14 01/19/18 08:03 1 TAB Folic Acid (Folvite Tab) 1 mg QAM PO 01/17/18 09:00 02/16/18 08:59 01/19/18 08:03 1 MG Lisinopril (Zestril Tab) 5 mg DAILY PO 01/17/18 09:00 02/16/18 08:59 01/19/18 08:03 5 MG Gabapentin (Neurontin Tab) 600 mg Q24H PO 01/20/18 06:00 01/20/18 06:01 Ioversol (Optiray 320) 111 ml UD PRN IV 01/16/18 17:45 01/20/18 17:44 Guaifenesin/ Dextromethorphan (Robitussin-Dm Syrup) 5 ml Q6H PRN PO 01/16/18 21:30 02/15/18 21:29 01/19/18 08:02 5 ML Pantoprazole Sodium (Protonix Tab) 40 mg BID PO 01/17/18 21:00 02/16/18 20:59 01/19/18 08:03 40 MG Sodium Chloride (Sodium Chloride Tab) 1 gm BIT337 PO 01/17/18 21:00 02/16/18 20:59 01/19/18 05:51 1 GM Last 24 Hours Test 8/1/18 18:24 01/19/18 05:12 Sodium Level 127 mmol/L 129 mmol/L Potassium Level 3.0 mmol/L 3.8 mmol/L Chloride Level 91 mmol/L 93 mmol/L Carbon Dioxide Level 31 mmol/L 29 mmol/L Anion Gap 5.0 mmol/L 7.0 mmol/L Blood Urea Nitrogen 8 mg/dl 6 mg/dl Creatinine 0.56 mg/dl 0.37 mg/dl Est Creatinine Clear Calc Drug Dose 100.0 ml/min 151.4 ml/min Estimated GFR () 121.5 144.0 Estimated GFR (Non- 104.8 124.3 BUN/Creatinine Ratio 13.9 17.3 Random Glucose 192 mg/dl 92 mg/dl Calcium Level 8.6 mg/dl 8.4 mg/dl White Blood Count 11.38 K/uL Red Blood Count 3.92 M/uL Hemoglobin 12.7 g/dL Hematocrit 36.1 % Mean Corpuscular Volume 92.1 fL Mean Corpuscular Hemoglobin 32.4 pg Mean Corpuscular Hemoglobin Concent 35.2 g/dl RDW Standard Deviation 40.9 fL RDW Coefficient of Variation 12.1 % Platelet Count 196 K/uL Mean Platelet Volume 8.4 fL Magnesium Level 1.9 mg/dl Other Studies: 01/19/18 05:12 01/18/18 18:24 01/19/18 05:12 Test 01/18/18 18:24 01/19/18 05:12 Anion Gap 5.0 mmol/L (3-11) 7.0 mmol/L (3-11) Est Creatinine Clear Calc Drug Dose 100.0 ml/min 151.4 ml/min Estimated GFR () 121.5 144.0 Estimated GFR (Non- 104.8 124.3 BUN/Creatinine Ratio 13.9 (10-20) 17.3 (10-20) Calcium Level 8.6 mg/dl (8.5-10.1) 8.4 mg/dl (8.5-10.1) Red Blood Count 3.92 M/uL (4.7-6.1) Mean Corpuscular Volume 92.1 fL (80-100) Mean Corpuscular Hemoglobin 32.4 pg (25-34) Mean Corpuscular Hemoglobin Concent 35.2 g/dl (32-36) RDW Standard Deviation 40.9 fL (36.4-46.3) RDW Coefficient of Variation 12.1 % (11.5-14.5) Mean Platelet Volume 8.4 fL (7.4-10.4) Magnesium Level 1.9 mg/dl (1.8-2.4) 01/18/18 01/19/18 01/20/18 08:00 08:00 08:00 Intake Total 789 ml 725 ml Output Total 950 ml Balance -161 ml 725 ml Assessment & Plan Patient is a 72 year old male with hypovolemic hyponatremia. Hyponatremia: has had for at least ten years. likely attributed excessive liquid intake and low salt and protein intake with some urinary dilution problem consistent with SIADH. goal sodium for this patient is greater than 125. on 1800mL fluid restriction. eating more per patient and sodium increased at 129. continue salt tab 1 gram twice daily. will hold on lasix for the time being. hypokalemia: corrected with supplementation. last check 3.8. will continue to follow. This patient was Discussed with Dr. Whiting. Thank you for the opportunity to participate in this patient's care. Appreciate the Consult. ATTENDING NOTE: Agree with note above and plan. I have discussed the patient's management with Karla Toro PA-C. Please refer to the above note for the documented findings and plan of care. Faustino Whiting MD
[2018-01-19 11:13] VITALS: BP 171/84; PULSE 83; TEMP 36.6; O2SAT 95
--- NOTE | 2018-01-19 12:37 | Progress Note ---
Internal Med Progress Note Date of Service: Jan 19, 2018. Provider Documentation: SUBJECTIVE: Seen and examined at bedside Doing well today Dysphagia resolved, eating lunch with no issues Had EGD with dilatation of esophageal stenosis Sodium levels better Discussed with Nephrology: Will DC salt tablets No other complaints Denies chest pain, SOB, dizziness, abd pain, odynophagia Patient not interested in Alcohol rehab placement No withdrawal symptoms OBJECTIVE: Vital Signs-as noted below Physical Exam: General Appearance:Thin, no apparent distress Head: normocephalic, Atraumatic Eyes: normal inspection, EOMI, PERRL Neck: supple, Trachea midline Respiratory/Chest: Normal breath sounds, CTA Cardiovascular: S1, S2, No murmur Abdomen/GI:Soft, Non tender, Bowel sounds present Extremities/Musculoskelatal:normal inspection, no edema Neurologic/Psych:AAOX3, grossly no focal neurological deficits Skin: normal color, warm Lab data as noted below. ASSESSMENT & PLAN: Chronic Hyponatremia Likely secondary to alcohol abuse, Poor oral intake, SIADH No confusion issues per family Received IV fluids and IV Lasix---unchanged sodium levels Continue fluid restriction::; Sodium levels improved Thyroid function near normal Monitor sodium levels Appreciate Nephrology Input Advised to get CT chest as outpatient to R/O cancer given H/O smoking and Possibly SIADH Esophageal Dysphagia S/P EGD-Dilatation of benign appearing esophageal stenosis Food Bolus S/P IV glucagon ED with resolution of symptoms History of similar event in 11/2015, EGD at the [facility] showed hiatal hernia and esophagitis Continue Protonic BID for Esophagitis Appreciate GI Input Needs colonoscopy with as outpatient- GI clinic at [facility] Pathology: pending Alcohol Abuse Patient drinks 6-10 cans of beer a day continue alcohol withdrawal protocol with gabapentin continue multivitamin, thiamine, folic acid Patient not interested in Alcohol Rehab placement HTN: Mildly elevated Asymptomatic Also received Salt Tablets Continue lisinopril Hypomagnesemia: Resolved monitor Right hip osteoarthritis H/O falls Follow up with Orthopedics as outpatient PT/OT DVT Px SQ Lovenox Disposition: PT/OT: return Home Plan to discharge home today Follow up with your Primary Care physician at [place] in 1 week Follow up with as outpatient- GI clinic at [facility] for colonoscopy as outpatient Restrict your oral fluid intake to 1800ml per day as suggested by your Pathology Laboratory Technologist Get Renal function test (Blood Test) in 1 week and follow up with your Physician to further asses your Sodium levels Consider getting a CT chest as outpatient to screen/rule out cancer as outpatient Your Esophageal Pathology report is pending. Follow up with [facility] Physician regarding results Quit drinking alcohol as advised Seek immediate medical attention if your symptoms reoccur or worsen Vital Signs: Date Time Temp Pulse Resp B/P (MAP) Pulse Ox O2 Delivery O2 Flow Rate FiO2 01/19/18 11:13 36.6 83 18 171/84 (113) 95 Room Air 01/19/18 08:00 Room Air 01/19/18 07:25 36.7 90 18 163/81 (108) 93 Room Air 01/19/18 04:28 36.9 58 18 158/83 (108) 95 Room Air 01/19/18 00:08 94 Room Air 01/18/18 23:48 37.0 62 18 147/79 (101) 95 Room Air 01/18/18 19:39 36.8 99 18 165/83 (110) 95 Room Air 01/18/18 16:51 36.7 79 18 161/84 (109) 93 Room Air 01/18/18 16:10 83 20 171/77 (108) 95 Room Air 01/18/18 16:00 94 Room Air 01/18/18 16:00 89 20 157/88 (111) 94 Room Air 01/18/18 15:53 94 20 146/78 (100) 95 Room Air 01/18/18 15:43 93 20 158/78 (104) 98 Partial Rebreather 5 01/18/18 14:26 36.9 75 20 144/80 (101) 95 Room Air Lab Results: Results Past 24 Hours Test 01/18/18 18:24 01/19/18 05:12 Range/Units Sodium Level 127 129 136-145 mmol/L Potassium Level 3.0 3.8 3.5-5.1 mmol/L Chloride Level 91 93 98-107 mmol/L Carbon Dioxide Level 31 29 21-32 mmol/L Anion Gap 5.0 7.0 3-11 mmol/L Blood Urea Nitrogen 8 6 7-18 mg/dl Creatinine 0.56 0.37 0.60-1.40 mg/dl Est Creatinine Clear Calc Drug Dose 100.0 151.4 ml/min Estimated GFR () 121.5 144.0 Estimated GFR (Non- 104.8 124.3 BUN/Creatinine Ratio 13.9 17.3 10-20 Random Glucose 192 92 70-99 mg/dl Calcium Level 8.6 8.4 8.5-10.1 mg/dl White Blood Count 11.38 4.8-10.8 K/uL Red Blood Count 3.92 4.7-6.1 M/uL Hemoglobin 12.7 14.0-18.0 g/dL Hematocrit 36.1 42-52 % Mean Corpuscular Volume 92.1 80-100 fL Mean Corpuscular Hemoglobin 32.4 25-34 pg Mean Corpuscular Hemoglobin Concent 35.2 32-36 g/dl RDW Standard Deviation 40.9 36.4-46.3 fL RDW Coefficient of Variation 12.1 11.5-14.5 % Platelet Count 196 130-400 K/uL Mean Platelet Volume 8.4 7.4-10.4 fL Magnesium Level 1.9 1.8-2.4 mg/dl
[2018-01-19] MEDS ORDERED: PANT40TA2 PO (12:40)
[2018-01-19] MEDS ORDERED: MULT-890 PO (12:40)
[2018-01-19] MEDS ORDERED: FLV1 PO (12:40)
[2018-01-19] MEDS ORDERED: THIA1TAB PO (12:40)
--- NOTE | 2018-01-19 12:42 | Discharge Summary ---
Discharge Summary Date of Service Jan 19, 2018. Discharge Summary Admission Date: Jan 16, 2018 at 15:57 Discharge Date: Jan 19, 2018 Discharge Disposition: Home Principal Diagnosis: Esophageal Stenosis, Hyponatremia, Alcohol use disorder Procedures: CT ABD: 1. No bowel wall thickening or obstruction. 2. Normal appendix. 3. Colonic diverticulosis. 4. Hepatic steatosis. 5. Mild bladder wall thickening. This may be chronic. Recommend correlation with urinalysis. 6. Severe right hip osteoarthritis with associated hip effusion. 7. Small patchy groundglass densities within the bilateral lower lobes. This may represent a low-grade pneumonia. CXR: Chronic emphysematous and interstitial change. No acute process. EGD: Impression: - Normal upper third of esophagus and middle third of esophagus. - LA Grade C reflux esophagitis. Biopsied. - Benign-appearing esophageal stenosis. Dilated. - Normal stomach. - Normal examined duodenum. Recommendation: - Resume regular diet. - [facility]. - Advance diet as tolerated. - Continue present medications. - Use a proton pump inhibitor PO BID indefinitely. - Repeat upper endoscopy for surveillance based on pathology results. Consultations: Nephrology, GI Pending Studies/Follow-Up: Follow up with your Primary Care physician at [place] in 1 week Follow up with as outpatient- GI clinic at [facility] for colonoscopy as outpatient Restrict your oral fluid intake to 1800ml per day as suggested by your Floor Scraper Get Renal function test (Blood Test) in 1 week and follow up with your Physician to further asses your Sodium levels Consider getting a CT chest as outpatient to screen/rule out cancer as outpatient Your Esophageal Pathology report is pending. Follow up with [facility] Physician regarding results Quit drinking alcohol as advised Seek immediate medical attention if your symptoms reoccur or worsen Medication Reconciliation New Medications: Thiamine Hcl (B-1) 100 Mg Tab 100 MG PO DAILY for 30 Days, #30 TABS Folic Acid (Folic Acid) 1 Mg Tab 1 MG PO QAM for 30 Days, #30 TAB Multiple Vitamin (Daily-Shay) 1 Tab Tab 1 TAB PO QAM for 30 Days, #30 TAB Pantoprazole (Pantoprazole Sodium) 40 Mg Tab 40 MG PO BID for 30 Days, #60 TAB 2 Refills Continued Medications: Lisinopril (Prinivil) 5 Mg Tab 5 MG PO DAILY, TAB Admission Information HPI (per Admitting provider): 72-year-old male who presents the ED with reports of difficulty swallowing. Patient reports he had roast beef for dinner last night. He reports that he had taken a bite and some got stuck in his throat. He reports he was able to take small sips of water however anything larger he would have to spit up. He reports he was able to swallow his own secretions. He tried to self induce vomiting however that did not resolve his symptoms. Symptoms persisted through to today and patient presented to the ER for further evaluation. He denies chest pain and shortness of breath. No lightheadedness, dizziness, diaphoresis , syncopal events. He denies abdominal pain, nausea, vomiting, diarrhea. Patient reports that he has had a poor appetite recently and that he has had a significant amount of weight loss however he is unsure of the exact amount. He also has been having generalized weakness and has had about 4 falls in the past 6-8 weeks. These fall seem to be mechanical. Patient denies any unilateral weakness, numbness, tingling. Patient drinks 6-10 cans of beer per day. He denies any other recent illnesses, fevers, chills. He denies any urinary symptoms. In the ED, patient was given IV glucagon and had improvement in his symptoms. Labs show hyponatremia with sodium of 124. Patient is hemodynamically stable. Physical Exam (per Admitting): General Appearance: WD/WN, no apparent distress Head: normocephalic, atraumatic Eyes: normal inspection, EOMI, sclerae normal ENT: hearing grossly normal, + pertinent finding (Mucous membranes moist) Neck: supple, no JVD, trachea midline Respiratory/Chest: lungs clear, normal breath sounds, no respiratory distress Cardiovascular: regular rate, rhythm, no edema, normal peripheral pulses Abdomen/GI: normal bowel sounds, non tender, soft, no organomegaly Extremities/Musculoskelatal: normal inspection, no calf tenderness, normal capillary refill Neurologic/Psych: no motor/sensory deficits, alert, normal mood/affect, oriented x 3 Skin: normal color, warm/dry Hospital Course Chronic Hyponatremia Likely secondary to alcohol abuse, Poor oral intake, SIADH No confusion issues per family Received IV fluids and IV Lasix---unchanged sodium levels Continue fluid restriction::; Sodium levels improved Thyroid function near normal Monitor sodium levels Appreciate Nephrology Input Advised to get CT chest as outpatient to R/O cancer given H/O smoking and Possibly SIADH Esophageal Dysphagia S/P EGD-Dilatation of benign appearing esophageal stenosis Food Bolus S/P IV glucagon ED with resolution of symptoms History of similar event in 11/2015, EGD at the [facility] showed hiatal hernia and esophagitis Continue Protonic BID for Esophagitis Appreciate GI Input Needs colonoscopy with as outpatient- GI clinic at [facility] Pathology: pending Alcohol Abuse Patient drinks 6-10 cans of beer a day continue alcohol withdrawal protocol with gabapentin continue multivitamin, thiamine, folic acid Patient not interested in Alcohol Rehab placement HTN: Mildly elevated Asymptomatic Also received Salt Tablets Continue lisinopril Hypomagnesemia: Resolved monitor Right hip osteoarthritis H/O falls Follow up with Orthopedics as outpatient PT/OT DVT Px SQ Lovenox Disposition: PT/OT: return Home Plan to discharge home today Follow up with your Primary Care physician at [place] in 1 week Follow up with as outpatient- GI clinic at [facility] for colonoscopy as outpatient Restrict your oral fluid intake to 1800ml per day as suggested by your Floor Scraper Get Renal function test (Blood Test) in 1 week and follow up with your Physician to further asses your Sodium levels Consider getting a CT chest as outpatient to screen/rule out cancer as outpatient Your Esophageal Pathology report is pending. Follow up with [facility] Physician regarding results Quit drinking alcohol as advised Seek immediate medical attention if your symptoms reoccur or worsen Total time spent on discharge = 40 minutes This includes examination of the patient, discharge planning, medication reconciliation, and communication with other providers. Discharge Instructions Discharge Instructions Date of Service Jan 19, 2018. Admission Reason for Admission: Hyponatremia Discharge Discharge Diagnosis / Problem: Esophageal Stenosis, Hyponatremia, Alcohol use disorder Discharge Goals Goal(s): Decrease discomfort, Improve function Activity Recommendations Activity Limitations: resume your previous activity Exercise/Sports Limitations: as tolerated . Instructions / Follow-Up Instructions / Follow-Up Follow up with your Primary Care physician at [place] in 1 week Follow up with as outpatient- GI clinic at [facility] for colonoscopy as outpatient Restrict your oral fluid intake to 1800ml per day as suggested by your Floor Scraper Get Renal function test (Blood Test) in 1 week and follow up with your Physician to further asses your Sodium levels Consider getting a CT chest as outpatient to screen/rule out cancer as outpatient Your Esophageal Pathology report is pending. Follow up with [facility] Physician regarding results Quit drinking alcohol as advised Seek immediate medical attention if your symptoms reoccur or worsen Current Hospital Diet Patient's current hospital diet: Regular Diet Discharge Diet Recommended Diet: Regular Diet Fluid Restriction: 1800 ml (7 cups) Pending Studies Studies pending at discharge: yes List of pending studies: Esophageal Pathology report Medical Emergencies . Who to Call and When: Medical Emergencies: If at any time you feel your situation is an emergency, please call 911 immediately. . Non-Emergent Contact Non-Emergency issues call your: Primary Care Provider, Tram Driver Call Non-Emergent contact if: you have a fever, your pain is not controlled, your pain is worsening, your pain is unusual for you, your pain is concerning you, you have any medication questions Seek immediate medical attention if your symptoms reoccur or worsen . . "Provider Documentation" section prepared by Adan Segura. .
[2018-01-19 13:05] VITALS: BP 171/84; PULSE 83; TEMP 36.6; O2SAT 95
[2018-01-20] MEDS ORDERED: GABAPENTIN 600MG X1 DOSE PO SCH (06:00)
== END 2018-01-19 13:39 | disposition home or self-care (01) | DRG 392 ==
LOC: C.EDB 12:46 → C.MED 15:57 → ENRESERV 16:27
PROVIDERS: ADMIT Hospitalist; ATTEND Internal Medicine
PROC: 0DB58ZX Excision of Esophagus, Via Natural or Artificial Opening Endoscopic, Diagnostic (ICD-10-PCS; principal; 2018-01-18 14:18)
DX: K22.2 Esophageal obstruction (principal); E22.2 Syndrome of inappropriate secretion of antidiuretic hormone; F17.200 Nicotine dependence, unspecified, uncomplicated; T18.108A Unspecified foreign body in esophagus causing other injury, initial encounter; F10.10 Alcohol abuse, uncomplicated; R63.4 Abnormal weight loss; I10 Essential (primary) hypertension; Z87.891 Personal history of nicotine dependence; M16.11 Unilateral primary osteoarthritis, right hip

== ENCOUNTER 2024-10-12 16:22 | Inpatient (IN) ==
[2024-10-12 16:59] LABS: Basophils # (auto) 0.07 K/uL (0.00-0.20); Basophils % (auto) 0.6 %; Eosinophils # (auto) 0.03 K/uL (0.00-0.50); Eosinophils % (auto) 0.3 %; Hematocrit (blood only) 44.3 % (42.0-52.0); Hemoglobin 15.6 g/dl (14.0-18.0); Immature Granulocytes # (auto) 0.07 K/uL (0.01-0.20); Immature Granulocytes % (auto) 0.6 %; Lymphocytes # (auto) 1.12 K/uL (1.20-3.40); Lymphocytes % (auto) 9.4 %; Mean Corpuscular Hemoglobin 31.9 pg (25.0-34.0); Mean Corpuscular Hgb Conc 35.2 g/dL (32.0-36.0); Mean Corpuscular Volume 90.6 fL (80.0-100.0); Monocytes # (auto) 1.25 K/uL (0.11-0.59); Monocytes % (auto) 10.5 %; Neutrophils # (auto) 9.35 K/uL (1.40-6.50); Neutrophils % (auto) 78.6 %; Platelet Count 181 K/uL (130-400); RDW Coefficient of Variation 11.9 % (11.5-14.5); RDW Standard Deviation 39.5 fL (36.4-46.3); Red Blood Count 4.89 M/uL (4.70-6.10); White Blood Count 11.89 K/ul (4.8-10.8)
[2024-10-12 17:29] LABS: Partial Thromboplastin Time 28 Seconds (21-31)
--- NOTE | 2024-10-12 17:54 | Emergency Department Note ---
Impression & Plan Cellulitis of forearm, left, Laceration of forearm, left ED Provider Note NAME: ALTAGRACIA TATE AGE: 79 SEX: M : 1945 ARRIVES VIA: Walk-In INFORMANT: Patient, ED PROVIDER(S): Emily Garcia MD CHIEF COMPLAINT: Left forearm injury HPI: This is a 79-year-old male present for left forearm injury. Patient states that he was doing yard work had attempted to move a branch off of a roof. He notes that he did the roof for the branch cut him in the left forearm. He notes he wrapped this up after cleaning it up. He [facility] return to come to the ER. He significant swelling to the arm. It is painful. He is full range of motion of the hand. No fevers, chills, nausea or vomiting. ROS: See above HPI for pertinent positives & negatives. A total of 10 systems reviewed and were otherwise negative. PAST MEDICAL HISTORY: See Below PAST SURGICAL HISTORY: See Below FAMILY HISTORY: See Below SOCIAL HISTORY: See Below HOME MEDICATIONS: See Below ALLERGIES: See Below VITALS: See Below PHYSICAL EXAMINATION: General: resting comfortably in no acute distress Head: Normocephalic and atraumatic Eyes: Normal inspection, extraocular muscles intact Ear, nose, throat: Normal external exam Neck: Normal range of motion Respiratory: lungs clear to auscultation bilaterally Cardiovascular: Regular rate/rhythm, no murmur GI: soft, nontender, no guarding or rebound Extremities: Deep skin tear/laceration, nonlinear to the left forearm, significant erythema and swelling both distally and proximally to this injury, 2+ pulses with preserved range of motion of the hand and wrist Neuro: The patient awake and alert, appropriately conversive, no focal deficits, symmetric faces Skin: Warm, dry, and intact MEDICAL DECISION MAKING: This is a 79-year-old male presents for left forearm injury. I have ultrasounded the area of erythema both proximally and distally, there is significant cobblestoning consistent with cellulitis but no discernible abscess on my examination. This appears to be fairly severe cellulitis, would require admission at this time for IV antibiotics. Do not believe patient can go home with oral option only. - Basic blood work reveals borderline leukocytosis 11.89. - X-ray of the forearm reveals no acute osseous fracture or dislocation upon independent interpretation Differential diagnosis: Cellulitis, abscess, phlegmon Independent History obtained from: Diagnostics interpreted by me: ECG: None Cardiac Monitoring: An order was placed for continuous cardiac monitoring. The monitor shows a rate of 86 with sinus rhythm. Past Med/Surg History Problem List (Updated 10/12/24 @ 19:06 by Emily Garcia MD) Laceration of forearm, left (Acute) Cellulitis of forearm, left (Acute) Cellulitis of left forearm Forearm laceration DVT prophylaxis Acute blood loss anemia Chronic obstructive pulmonary disease (Chronic) Using Albuterol once/week on avg. GERD (gastroesophageal reflux disease) (Chronic) History of cataract extraction with lens replacement (Chronic) B/L History of colonoscopy (Chronic) H/O repair of left rotator cuff (Chronic) BPH (benign prostatic hyperplasia) (Chronic) Degenerative joint disease of right hip Hypertension (Chronic) Arthritis (Chronic) Medical History (Updated 10/12/24 @ 19:06 by Emily Garcia MD) Anemia BPH (benign prostatic hyperplasia) STATES PATIENT TENDS TO HAVE ISSUES WITH "DRIBBLING/LEAKAGE" AND WEARS A DEPENDS. PT REMAINS VERY PRIVATE ABOUT THIS MATTER. Osteoarthritis Surgical History History of esophagogastroduodenoscopy (EGD) WITH STRETCHING H/O repair of rotator cuff Family History Other No pertinent family history Social History Smoking Status: Never smoker Second Hand Exposure: No; Do You Dip or Chew Tobacco: No; Hx Alcohol Use: No (h/o 10 day. QUIT COMPLETELY IN JANUARY 2018) Hx Substance Use: No Preferred Language: Brazilian Communication Ability: Effective Visual Impairment: No Limitations Hearing Ability: Normal Groundskeeper Porter Required: No Beliefs That Will Affect Care: None marital status: Current Living Situation: Spouse current occupational status: employed Feels Safe at Home: Yes Assistive Devices: Walker Allergies Allergies Allergy/AdvReac Type Severity Reaction Status Date / Time No Known Allergies Allergy Verified 07/27/18 09:00 Home Meds Home Medications Medication Instructions Recorded Confirmed albuterol sulfate 90 mcg/actuation 2 puff inhalation Q4H PRN 05/07/18 10/12/24 aerosol inhaler Shortness Of Breath Or Wheezing lisinopril 5 mg tablet 5 mg PO QAM 05/07/18 10/12/24 pantoprazole 40 mg tablet,delayed 40 mg PO QAM 05/07/18 10/12/24 release Unknown Twist Inhaler 1 puff inhalation BID 12/12/18 10/12/24 Vitamin D3 1 tab PO DAILY 10/12/24 10/12/24 Results & Data (ED) Vital Signs Vital Signs - 24 hr 10/12/24 16:30 10/12/24 18:21 Temperature 37.5 C Temperature Source Temporal Artery Scan Pulse Rate 103 H Pulse Rate [Apical] 86 Respiratory Rate 18 16 Respiratory Effort / Characteristics Non-Labored Spontaneous Respiratory Depth Normal Blood Pressure 167/94 H Blood Pressure [Right Arm] 180/94 H Blood Pressure Mean 118 Blood Pressure Mean [Right Arm] 122 Blood Pressure Position Sitting Pulse Oximetry 98 94 Oxygen Delivery Method Room Air Room Air Sepsis Recent Fever Within 48 Hours No Sepsis New/Unexplained Change in Mental Status N/A Sepsis Action Taken by Nursing No Action Required Laboratory Data 10/12/24 16:44 10/12/24 17:45 Lab Results 10/12/24 10/12/24 Range/Units 16:44 17:45 WBC 11.89 H (4.8-10.8) K/ul RBC 4.89 (4.70-6.10) M/uL Hgb 15.6 (14.0-18.0) g/dl Hct 44.3 (42.0-52.0) % MCV 90.6 (80.0-100.0) fL MCH 31.9 (25.0-34.0) pg MCHC 35.2 (32.0-36.0) g/dL RDW Std Deviation 39.5 (36.4-46.3) fL RDW Coeff of Jasmine 11.9 (11.5-14.5) % Plt Count 181 (130-400) K/uL MPV 9.0 L (9.4-12.4) fL Immature Gran % (Auto) 0.6 % Neut % (Auto) 78.6 % Lymph % (Auto) 9.4 % [place] % (Auto) 10.5 % Eos % (Auto) 0.3 % Baso % (Auto) 0.6 % Neut # (Auto) 9.35 H (1.40-6.50) K/uL Lymph # (Auto) 1.12 L (1.20-3.40) K/uL [place] # (Auto) 1.25 H (0.11-0.59) K/uL Eos # (Auto) 0.03 (0.00-0.50) K/uL Baso # (Auto) 0.07 (0.00-0.20) K/uL Immature Gran # (Auto) 0.07 (0.01-0.20) K/uL APTT 28 (21-31) Seconds PTT Ratio 1.0 Lactate 1.3 (0.4-2.0) mmol/L Administered Medications Vancomycin HCl 1,500 mg/ (Sodium Chloride) 530 mls @ 200 mls/hr IV NOW ONE Stop: 10/12/24 20:47 Last Admin: 10/12/24 18:50 Dose: 200 mls/hr Documented By: OLAMIDE Discontinued Medications Ceftriaxone Sodium (Rocephin) 2,000 mg in 50 mls @ 100 mls/hr IV NOW STA Stop: 10/12/24 18:38 Last Infusion: 10/12/24 18:51 Dose: Infused Documented By: Admin: 10/12/24 18:20 Dose: 100 mls/hr Documented By: OLAMIDE Discharge Plan Visit Data Chief Complaint: Infection Stated Complaint: L ARM LAC ED Provider: Emily Garcia Discharge Problem: Cellulitis of forearm, left, Laceration of forearm, left Forms Stand Alone Forms: My [facility] Prescriptions Prescriptions: No Action pantoprazole 40 mg Tablet,Delayed Release (Dr/Ec) 40 mg PO QAM lisinopril 5 mg Tablet 5 mg PO QAM albuterol sulfate 90 mcg/actuation Hfa Aerosol Inhaler 2 puff INHALATION Q4H PRN (Reason: Shortness Of Breath Or Wheezing) Unknown Twist Inhaler 1 puff inhalation BID Rx Instructions: per pt he doesnt know the name of his inhaler just that he uses it twice daily Vitamin D3 1 tab PO DAILY Rx Instructions: unknown dose Referrals Referrals: Raymundo Shah M.D. [Primary Care Provider] - Discharge Problem: Laceration of forearm, left Qualifiers: Encounter type: initial encounter Qualified Code(s): S51.812A - Laceration without foreign body of left forearm, initial encounter
[2024-10-12] MEDS ORDERED: VANCOMYCIN CONSULT ACTIVE PRN ×2 (18:09→18:59)
[2024-10-12] MEDS: cefTRIAXone SODIUM 2,000 MG/50 ML BAG IV STA (18:20)
[2024-10-12] MEDS: VANCOMYCIN HCL 1,500 MG in SODIUM CHLORIDE 0.9% 500 ML IV ONE (18:50)
--- NOTE | 2024-10-12 18:57 | History & Physical Report ---
Date of Service October 12, 2024 Assessment & Plan (1) Forearm laceration: Plan: Left forearm laceration following following following of part of the roof while cutting the tree branch Did not sought any medical advice and the condition got worse Has open wound with minimal drainage and scab formation Will ask wound care to evaluate Advised to keep the left forearm elevated when possible Consider Plastic Surgery evaluation (2) Cellulitis of left forearm: Plan: Following resolution as above Significant cellulitis mostly above the wound with edema of the forearm No evidence of abscess on ultrasound on our examination Forearm x-ray does not show any bony involvement Started with intravenous ceftriaxone and vancomycin Wound culture and blood culture was taken (3) Chronic obstructive pulmonary disease: Plan: Has been on inhalers albuterol as needed Another inhaler the patient does not know (4) GERD (gastroesophageal reflux disease): Plan: Continue Protonix (5) Hypertension: Plan: Did not take his medications in the morning Will start giving his medication now and continue from tomorrow morning as well (6) Arthritis: Plan: Has significant osteoarthritis involving the extremities (7) BPH (benign prostatic hyperplasia): Plan: Does not take any medication DVT prophylaxis Subcu heparin CODE STATUS DNR/DNI History of Present Illness Chief Complaint: Left forearm laceration injury with adjoining redness and swelling since Tuesday last Primary Care Provider: Raymundo Shah He is a 79-year-old male significant past medical history of COPD, hypertension, GERD, degenerative joint disease and history of BPH apparently has had an injury involving his left forearm while he was trimming a tree branch. He tried to separate the roof while the tree branch was falling and did not the process part of the roof structure fell on his left forearm and caused significant laceration injury. He did not go for any medical advice until the condition got worse as of today and [facility] and was advised to come to the emergency room. He has mild to moderate pain involving the left forearm, more swelling above the injury than below with a spreading redness and does not have any regional adenopathy. Denies any fever and/or chills, denies any nausea and/or vomiting. And there is minimal drainage involving the wound with a black eschar on top of it. denies any respiratory symptoms given the history of COPD seems to be stable and his blood pressure noted to be high in the emergency room. he was started with intravenous ceftriaxone and vancomycin and was admitted to medical floor for continuation of care Allergies Allergy/AdvReac Type Severity Reaction Status Date / Time No Known Allergies Allergy Verified 07/27/18 09:00 Home Medications Medication Instructions Recorded Confirmed Type albuterol sulfate 90 mcg/actuation 2 puff inhalation Q4H PRN 05/07/18 10/12/24 History aerosol inhaler Shortness Of Breath Or Wheezing lisinopril 5 mg tablet 5 mg PO QAM 05/07/18 10/12/24 History pantoprazole 40 mg tablet,delayed 40 mg PO QAM 05/07/18 10/12/24 History release Unknown Twist Inhaler 1 puff inhalation BID 12/12/18 10/12/24 History Vitamin D3 1 tab PO DAILY 10/12/24 10/12/24 History Past Med/Surg History Problem List (Updated 10/12/24 @ 19:06 by Emily Garcia MD) Laceration of forearm, left (Acute) Cellulitis of forearm, left (Acute) Cellulitis of left forearm Forearm laceration DVT prophylaxis Acute blood loss anemia Chronic obstructive pulmonary disease (Chronic) Using Albuterol once/week on avg. GERD (gastroesophageal reflux disease) (Chronic) History of cataract extraction with lens replacement (Chronic) B/L History of colonoscopy (Chronic) H/O repair of left rotator cuff (Chronic) BPH (benign prostatic hyperplasia) (Chronic) Degenerative joint disease of right hip Hypertension (Chronic) Arthritis (Chronic) Medical History (Updated 10/12/24 @ 19:06 by Emily Garcia MD) Anemia BPH (benign prostatic hyperplasia) STATES PATIENT TENDS TO HAVE ISSUES WITH "DRIBBLING/LEAKAGE" AND WEARS A DEPENDS. PT REMAINS VERY PRIVATE ABOUT THIS MATTER. Osteoarthritis Surgical History History of esophagogastroduodenoscopy (EGD) WITH STRETCHING H/O repair of rotator cuff Family History Other No pertinent family history Social History Smoking Status: Never smoker Second Hand Exposure: No; Do You Dip or Chew Tobacco: No; Hx Alcohol Use: Yes Alcohol type: beer Hx Substance Use: No Preferred Language: Azeri Communication Ability: Effective Visual Impairment: No Limitations Hearing Ability: Normal Worm Packer Required: No Beliefs That Will Affect Care: None marital status: Current Living Situation: Spouse current occupational status: employed Other Information That Helps Us Care for You: No Feels Safe at Home: Yes Safety Concerns: Feels Safe At This Time Assistive Devices: None Review of Systems Review of Systems: All systems reviewed and are unremarkable except as noted below Physical Exam Physical Exam: Lying in bed without any acute distress but looks very anxious Constitutional: + ill appearing and average body habitus Eyes: PERRL, conjunctivae normal, anicteric sclerae ENMT: external ear and nose normal, oropharynx normal Neck: trachea midline, no thyromegaly Respiratory: no respiratory distress Auscultation: + diminished lung sounds ( minimally diminished breath sound both sides but no wheezing and or crackl) Cardiovascular: Rate/Rhythm: regular rate and regular rhythm; not tachycardic Heart Sounds: normal S1 and normal S2; no murmur Extremities: no edema Gastrointestinal (Abdomen): Inspection/Auscultation: normal bowel sounds; abdomen not distended Percussion/Palpation: abdomen soft; abdomen nontender Musculoskeletal: Has significant osteoarthritic changes involving the extremities mainly the hands but no acute arthritis involving any joint Skin: Significant wound/laceration involving the forearm mainly on the midportion and dorsal area with swelling more on the upper part up to the elbow. With pitting edema in the part without any fluctuation on examination. Multiple minor scars noted left forearm but the patient is unaware of any injury in the past. Neurologic: normal touch/pain/proprioception and moves all extremities; no focal motor deficits Lymphatic: no cervical or axillary lymphadenopathy Results & Data Results & Data Vital Signs (Past 12 Hours) Vital Signs Temp Pulse Pulse Resp BP BP Pulse Ox 10/12/24 18:21 86 16 180/94 H 94 10/12/24 16:30 37.5 C 103 H 18 167/94 H 98 O2 Del Method 10/12/24 18:21 Room Air 10/12/24 16:30 Room Air Laboratory Results Short CBC 10/12/24 Range/Units 16:44 WBC 11.89 H (4.8-10.8) K/ul Hgb 15.6 (14.0-18.0) g/dl Hct 44.3 (42.0-52.0) % Plt Count 181 (130-400) K/uL Medications Administered Current Inpatient Medications Vancomycin HCl 1,500 mg/ (Sodium Chloride) 530 mls @ 200 mls/hr IV NOW ONE Stop: 10/12/24 20:47 Miscellaneous Information (Vancomycin Consult Active) 1 each N/A UD PRN PRN Reason: Consult Stop: 11/11/24 18:08
[2024-10-12 19:18] LABS: Albumin Globulin Ratio 1.2 (0.9-2); Albumin Level 4.4 gm/dl (3.4-5.0); BUN Creatinine Ratio 11.1 (10-20); Bilirubin,Total 0.9 mg/dl (0.2-1.0); Calcium 9.5 mg/dl (8.6-10.3); Creatinine Clr Calc Pharmacy 101.1 ml/min; Globulin 3.8 gm/dl (2.5-4.0); Potassium 4.3 mmol/L (3.5-5.1); Total Protein 8.2 gm/dl (6.0-8.3)
[2024-10-12] MEDS: VANCOMYCIN HCL 1,000 MG/270 ML BAG IV ONE (19:36)
--- NOTE | 2024-10-12 19:44 | XRay Report ---
EXAM: XR forearm LT 2V CLINICAL HISTORY: Fracture, injury. TECHNIQUE: X-ray images of the left forearm were obtained in anteroposterior (AP), oblique and lateral projections. COMPARISON: X-ray wrist dated 09/19/2015. FINDINGS: Bone Structure: Bone structure is normal and aligned. Bony remodeling at the distal radius with mild angulation (sequelae of an old malunited fracture). Redemonstration of the avulsion of the ulnar styloid process with newly noted multiple regional loose bodies. No acute fractures or dislocations. Osteopenia. Joint Spaces: Osteoarthritic changes of the radiocarpal and elbow joints are evident by narrow joint spaces and marginal osteophytes. Soft Tissues: Soft tissues appear normal and unremarkable. No soft tissue swelling, calcifications, or foreign bodies were noted. IMPRESSION: 1. No acute fractures or dislocations. 2. Bony remodeling at the distal radius with mild angulation (sequelae of an old malunited fracture). 3. Redemonstration of the avulsion of the ulnar styloid process with newly noted multiple regional loose bodies. 4. Osteoarthritic changes of the radiocarpal and elbow joints. Disclaimer: A subtle bone abnormality or fracture may not be readily apparent on X-rays, thus clinical correlation and further imaging, including follow-up CT, MRI, or follow-up X-rays, are advised as needed. Electronically signed by Rudy Dhillon 10-12-2024 7:44 PM
[2024-10-12] MEDS: DIPHTHER/TETAN/PERTUS Vaccine (Tdap, Adol/Adult) 0.5mL IM ONE (19:57)
[2024-10-12] MEDS: HEPARIN SOD 5,000 UNIT/0.5 ML VIAL SQ SCH (22:02)
[2024-10-13] MEDS: traMADol HCL 50 MG TABLET PO STA (01:07)
[2024-10-13] MEDS: VANCOMYCIN HCL 1,250 MG in SODIUM CHLORIDE 0.9% 250 ML IV SCH (02:48)
[2024-10-13] MEDS: lisinopril 5 MG TAB PO SCH (02:49)
[2024-10-13 07:37] LABS: Creatinine Clr Calc Pharmacy 101.1 ml/min
[2024-10-13 08:49] LABS: C Reactive Protein 9.46 mg/dl (0-0.5)
[2024-10-13] MEDS: PANTOprazole 40 MG TAB PO SCH (08:49)
[2024-10-13] MEDS: ACETAMINOPHEN 325 MG TAB PO PRN (08:49)
[2024-10-13] MEDS: CHOLECALCIFEROL 25 MCG (1000 UNITS) TAB PO SCH (08:49)
--- NOTE | 2024-10-13 09:37 | Pharmacy Report ---
Pharmacy PK ABX Note - Date of Service October 13, 2024 - Assessment and Plan Assessment 79 year old M receiving VANCOMYCIN/CEFTRIAXONE for treatment of forearm cellulitis from laceration. Pertinent microbiologic data includes: Blood cultures pending. WBC mildly elevated, afebrile Plan Vancomycin * Loading dose:1500 mg IV x 1 * Maintenance dose: 1250 mg IV every 12 hours * Regimen is predicted to achieve target AUC/MAL of 400-600 mg/L.hr * Random level ordered for 10/14 @ 1200 Pharmacy will continue to follow and will adjust dose/frequency as necessary. Thank you. Pharmacy has transitioned to AUC monitoring for vancomycin. AUC/MAL is the preferred PK/PD target and is associated with decreased risk of nephrotoxicity compared to traditional trough targets.
[2024-10-13] MEDS: ALBUTEROL HFA 8 GM INHALER INH PRN (15:04)
[2024-10-13] MEDS: cefTRIAXone SODIUM 2,000 MG/50 ML BAG IV SCH (17:43)
--- NOTE | 2024-10-13 17:58 | Hospitalist Progress Note ---
Date of Service October 13, 2024 Assessment & Plan (1) Forearm laceration: Plan: -Left forearm laceration following following following of part of the roof while cutting the tree branch -Did not sought any medical advice and the condition got worse -Has open wound with drainage and scab formation Plan: -Will ask wound care to evaluate -Advised to keep the left forearm elevated when possible -continue vancomycin/ceftriaxone for now -will consider ortho consult if no improvement (2) Cellulitis of left forearm: Plan: -Following resolution as above -Significant cellulitis mostly above the wound with edema of the forearm -No evidence of abscess on ultrasound on our examination -Forearm x-ray does not show any bony involvement -f/u culture results (3) Chronic obstructive pulmonary disease: Plan: -Has been on inhalers albuterol as needed -Another inhaler the patient does not know (4) GERD (gastroesophageal reflux disease): Plan: - Continue Protonix (5) Hypertension: Plan: -continue home meds (6) Arthritis: Plan: -Has significant osteoarthritis involving the extremities (7) BPH (benign prostatic hyperplasia): Plan I spent a total of 50 minutes in direct patient care, including [id number] time with the patient and/or family, reviewing medical records, ordering and reviewing diagnostic tests, and coordinating care with other healthcare providers. This time includes: history taking, physical examination, medical decision making, counseling, ECG interpretation, imaging interpretation, lab interpretation, orders, and education, excluding time spent in the performance of separately billed services. Admission and Anticipated Discharge Date Admission Date: October 12, 2024 Subjective Patient seen and examined at bedside. Patient doing okay today. States he was at home and his left arm just was not improving, getting more red, more edematous. States he has felt a little weaker to it was well. Review of Systems Review of Systems: CONSTITUTIONAL: fatigue, weakness EYES: Patient denies any visual symptoms. EARS, NOSE, AND THROAT: No difficulties with hearing. No symptoms of rhinitis or sore throat. CARDIOVASCULAR: Patient denies chest pains, palpitations, orthopnea and paroxysmal nocturnal dyspnea. RESPIRATORY: No dyspnea on exertion, no wheezing or cough. GI: No nausea, vomiting, diarrhea, constipation, abdominal pain, hematochezia or melena. : No urinary hesitancy or dribbling. No nocturia or urinary frequency. No abnormal urethral discharge. MUSCULOSKELETAL: left arm pain NEUROLOGIC: No chronic headaches, no seizures. Patient denies numbness, tingling or weakness. PSYCHIATRIC: Patient denies problems with mood disturbance. No problems with anxiety. ENDOCRINE: No excessive urination or excessive thirst. DERMATOLOGIC: Patient denies any rashes or skin changes. Physical Exam Physical Exam: Gen: A&O 3 NAD HEENT: NCAT, EOMI, not icteric. External ears normal. No rhinorrhea. Moist mucous membranes. Neck: Supple, full range of motion, no observable masses, No meningeal sign. Lungs: No Respiratory distress. CV: RRR, no edema. Abdomen: Soft, nondistended, No rebound tenderness. MSK: No joint swelling, no redness. unsteady on feet, unwrapped to looked at left arm wound, purulent, smells, necrotic tissue noted Skin: No rashes, petechiae, lesions. Normal color per patient. Neuro: Normal Gait, Grossly intact. Psych: Appropriate for situation. Results & Data Results & Data Vital Signs (Past 12 Hours) Vital Signs Temp Pulse Resp BP Pulse Ox O2 Del Method 10/13/24 15:57 36.9 C 10/13/24 15:06 18 Room Air 10/13/24 14:47 88 20 158/73 H 94 Room Air 10/13/24 08:30 97 H 20 128/62 93 Room Air 10/13/24 07:29 36.6 C 88 18 151/80 H 91 Room Air Laboratory Results -personally reviewed, elevated ESR/CRP consistent with cellulitis Medications Administered Acetaminophen (Acetaminophen 325 Mg Tab) 650 mg PO Q4H PRN PRN Reason: Pain or Fever Stop: 11/12/24 00:45 Last Admin: 10/13/24 14:49 Dose: 650 mg Documented By: Admin: 10/13/24 08:49 Dose: 650 mg Documented By: HAYLEE Albuterol (Albuterol Hfa 8 Gm Inhaler) 2 puffs INH Q4H PRN PRN Reason: Shortness Of Breath Or Wheezin Stop: 11/12/24 00:00 Last Admin: 10/13/24 15:04 Dose: 2 puffs Documented By: ALANA Heparin Sodium (Porcine) (Heparin Sod 5,000 Unit/0.5 Ml Vial) 5,000 units SQ Q12 HIRAM Stop: 11/11/24 20:59 Last Admin: 10/13/24 09:02 Dose: 5,000 units Documented By: Admin: 10/12/24 22:02 Dose: 5,000 units Documented By: ABHINAV Ceftriaxone Sodium (Rocephin) 2,000 mg in 50 mls @ 100 mls/hr IV Q24H [facility] Stop: 10/20/24 17:59 Last Admin: 10/13/24 17:43 Dose: 100 mls/hr Documented By: HAYLEE Vancomycin HCl 1,250 mg/ (Sodium Chloride) 275 mls @ 200 mls/hr IV Q12H [facility] Stop: 10/20/24 02:59 Last Infusion: 10/13/24 16:32 Dose: Infused Documented By: Admin: 10/13/24 14:50 Dose: 275 mls/hr Documented By: Infusion: 10/13/24 05:00 Dose: Infused Documented By: Admin: 10/13/24 02:48 Dose: 200 mls/hr Documented By: JACQUELINE Lisinopril (Lisinopril 5 Mg Tab) 5 mg PO [facility] Stop: 11/12/24 00:00 Last Admin: 10/13/24 08:49 Dose: 5 mg Documented By: Admin: 10/13/24 02:49 Dose: 5 mg Documented By: JACQUELINE Pantoprazole Sodium (Pantoprazole 40 Mg Tab) 40 mg PO [facility] Stop: 11/12/24 08:59 Last Admin: 10/13/24 08:49 Dose: 40 mg Documented By: HAYLEE Vitamin D (Cholecalciferol 25 Mcg (1000 Units) Tab) 25 mcg PO DAILY [facility] Stop: 11/12/24 08:59 Last Admin: 10/13/24 08:49 Dose: 25 mcg Documented By: HAYLEE
[2024-10-14 07:44] LABS: Hematocrit (blood only) 42.4 % (42.0-52.0); Hemoglobin 14.4 g/dl (14.0-18.0); Mean Corpuscular Hemoglobin 32.1 pg (25.0-34.0); Mean Corpuscular Volume 94.4 fL (80.0-100.0); Mean Platelet Volume 9.4 fL (9.4-12.4); Platelet Count 156 K/uL (130-400); RDW Coefficient of Variation 12.1 % (11.5-14.5); Red Blood Count 4.49 M/uL (4.70-6.10); White Blood Count 6.49 K/ul (4.8-10.8)
[2024-10-14 08:02] LABS: Calcium 8.8 mg/dl (8.6-10.3); Creatinine Clr Calc Pharmacy 89.5 ml/min; Potassium 4.7 mmol/L (3.5-5.1)
[2024-10-14] MEDS: FLUTICASONE/VILANTEROL 200/25MCG 14 PUFFS/INHALER INH SCH (08:32)
[2024-10-14] MEDS: VANCOMYCIN HCL 1,000 MG/270 ML BAG IV SCH (14:04)
--- NOTE | 2024-10-14 14:47 | Pharmacy Report ---
Pharmacy PK ABX Note - Date of Service October 14, 2024 - Assessment and Plan Assessment 10/14: Random level ordered today 10.7 mcg/mL suggests low end of therapeutic. Blood cultures negative. WBC improved. Will adjust dose to target mid range to ensure therapeutic dosing. 10/13: 79 year old M receiving VANCOMYCIN/CEFTRIAXONE for treatment of forearm cellulitis from laceration. Pertinent microbiologic data includes: Blood cultures pending. WBC mildly elevated, afebrile Plan Vancomycin * Loading dose:1500 mg IV x 1 * Maintenance dose: 1250 mg IV every 12 hours-- adjust to 1000 mg every 8 hours * Regimen is predicted to achieve target AUC/MAL of 400-600 mg/L.hr * Random level ordered for 10/15 with AM labs Pharmacy will continue to follow and will adjust dose/frequency as necessary. Thank you. Pharmacy has transitioned to AUC monitoring for vancomycin. AUC/MAL is the preferred PK/PD target and is associated with decreased risk of nephrotoxicity compared to traditional trough targets.
--- NOTE | 2024-10-14 17:00 | Hospitalist Progress Note ---
Date of Service October 14, 2024 Assessment & Plan (1) Forearm laceration: Plan: -Left forearm laceration following following following of part of the roof while cutting the tree branch -Did not sought any medical advice and the condition got worse -Has open wound with drainage and scab formation Plan: -Will ask wound care to evaluate -Advised to keep the left forearm elevated when possible -continue vancomycin/ceftriaxone for now -plastic surgery consulted, wound care consulted, appreciate recs (2) Cellulitis of left forearm: Plan: -Following resolution as above -Significant cellulitis mostly above the wound with edema of the forearm -No evidence of abscess on ultrasound on our examination -Forearm x-ray does not show any bony involvement -f/u culture results (3) Chronic obstructive pulmonary disease: Plan: -Has been on inhalers albuterol as needed -Another inhaler the patient does not know (4) GERD (gastroesophageal reflux disease): Plan: - Continue Protonix (5) Hypertension: Plan: -continue home meds (6) Arthritis: Plan: -Has significant osteoarthritis involving the extremities (7) BPH (benign prostatic hyperplasia): Plan I spent a total of 45 minutes in direct patient care, including [id number] time with the patient and/or family, reviewing medical records, ordering and reviewing diagnostic tests, and coordinating care with other healthcare providers. This time includes: history taking, physical examination, medical decision making, counseling, ECG interpretation, imaging interpretation, lab interpretation, orders, and education, excluding time spent in the performance of separately billed services. Admission and Anticipated Discharge Date Admission Date: October 12, 2024 Subjective Patient seen and examined at bedside. Mr. Ramsey is doing ok today. States he wants to go home but is agreeable to evaluation by wound care nurse tomorrow. Review of Systems Review of Systems: CONSTITUTIONAL: fatigue, weakness EYES: Patient denies any visual symptoms. EARS, NOSE, AND THROAT: No difficulties with hearing. No symptoms of rhinitis or sore throat. CARDIOVASCULAR: Patient denies chest pains, palpitations, orthopnea and paroxysmal nocturnal dyspnea. RESPIRATORY: No dyspnea on exertion, no wheezing or cough. GI: No nausea, vomiting, diarrhea, constipation, abdominal pain, hematochezia or melena. : No urinary hesitancy or dribbling. No nocturia or urinary frequency. No abnormal urethral discharge. MUSCULOSKELETAL: left arm pain NEUROLOGIC: No chronic headaches, no seizures. Patient denies numbness, tingling or weakness. PSYCHIATRIC: Patient denies problems with mood disturbance. No problems with anxiety. ENDOCRINE: No excessive urination or excessive thirst. DERMATOLOGIC: Patient denies any rashes or skin changes. Physical Exam Physical Exam: Gen: A&O 3 NAD HEENT: NCAT, EOMI, not icteric. External ears normal. No rhinorrhea. Moist mucous membranes. Neck: Supple, full range of motion, no observable masses, No meningeal sign. Lungs: No Respiratory distress. CV: RRR, no edema. Abdomen: Soft, nondistended, No rebound tenderness. MSK: No joint swelling, no redness. unsteady on feet, unwrapped to looked at left arm wound, purulent, smells, necrotic tissue noted Skin: No rashes, petechiae, lesions. Normal color per patient. Neuro: Normal Gait, Grossly intact. Psych: Appropriate for situation. Results & Data Results & Data Vital Signs (Past 12 Hours) Vital Signs Temp Pulse Resp BP Pulse Ox O2 Del Method 10/14/24 15:12 36.5 C 78 18 138/69 95 Room Air 10/14/24 11:42 36.3 C L 82 16 122/66 93 Room Air 10/14/24 08:20 90 20 145/65 H 94 Room Air 10/14/24 07:28 36.6 C 82 18 163/81 H 90 Room Air Laboratory Results -personally reviewed, no leukocytosis noted Medications Administered Acetaminophen (Acetaminophen 325 Mg Tab) 650 mg PO Q4H PRN PRN Reason: Pain or Fever Stop: 11/12/24 00:45 Last Admin: 10/14/24 08:36 Dose: 650 mg Documented By: Admin: 10/13/24 20:42 Dose: 650 mg Documented By: Admin: 10/13/24 14:49 Dose: 650 mg Documented By: Admin: 10/13/24 08:49 Dose: 650 mg Documented By: HAYLEE Albuterol (Albuterol Hfa 8 Gm Inhaler) 2 puffs INH Q4H PRN PRN Reason: Shortness Of Breath Or Wheezin Stop: 11/12/24 00:00 Last Admin: 10/13/24 20:44 Dose: 2 puffs Documented By: Admin: 10/13/24 15:04 Dose: 2 puffs Documented By: ALANA Fluticasone/Vilanterol (Fluticasone/Vilanterol 200/25mcg 14 Puffs/Inhaler) 1 puffs INH DAILY [facility] Stop: 11/13/24 08:59 Last Admin: 10/14/24 08:32 Dose: 1 puffs Documented By: HAYLEE Heparin Sodium (Porcine) (Heparin Sod 5,000 Unit/0.5 Ml Vial) 5,000 units SQ Q12 [facility] Stop: 11/11/24 20:59 Last Admin: 10/14/24 08:36 Dose: 5,000 units Documented By: Admin: 10/13/24 20:43 Dose: 5,000 units Documented By: Admin: 10/13/24 09:02 Dose: 5,000 units Documented By: Admin: 10/12/24 22:02 Dose: 5,000 units Documented By: ABHINAV Ceftriaxone Sodium (Rocephin) 2,000 mg in 50 mls @ 100 mls/hr IV Q24H [facility] Stop: 10/20/24 17:59 Last Infusion: 10/13/24 18:32 Dose: Infused Documented By: Admin: 10/13/24 17:43 Dose: 100 mls/hr Documented By: HAYLEE Vancomycin HCl (Vancomycin Hcl) 1,000 mg in 270 mls @ 200 mls/hr IV Q8H [facility] Stop: 10/20/24 02:59 Last Infusion: 10/14/24 15:37 Dose: Infused Documented By: Admin: 10/14/24 14:04 Dose: 200 mls/hr Documented By: HAYLEE Lisinopril (Lisinopril 5 Mg Tab) 5 mg PO QAM [facility] Stop: 11/12/24 00:00 Last Admin: 10/14/24 08:33 Dose: 5 mg Documented By: Admin: 10/13/24 08:49 Dose: 5 mg Documented By: Admin: 10/13/24 02:49 Dose: 5 mg Documented By: JACQUELINE Pantoprazole Sodium (Pantoprazole 40 Mg Tab) 40 mg PO QAM [facility] Stop: 11/12/24 08:59 Last Admin: 10/14/24 08:33 Dose: 40 mg Documented By: Admin: 10/13/24 08:49 Dose: 40 mg Documented By: HAYLEE Vitamin D (Cholecalciferol 25 Mcg (1000 Units) Tab) 25 mcg PO DAILY [facility] Stop: 11/12/24 08:59 Last Admin: 10/14/24 08:33 Dose: 25 mcg Documented By: Admin: 10/13/24 08:49 Dose: 25 mcg Documented By: HAYLEE
[2024-10-15 05:25] LABS: Hematocrit (blood only) 40.6 % (42.0-52.0); Hemoglobin 14.2 g/dl (14.0-18.0); Mean Corpuscular Hemoglobin 32.1 pg (25.0-34.0); Mean Corpuscular Volume 91.6 fL (80.0-100.0); Mean Platelet Volume 8.7 fL (9.4-12.4); Platelet Count 148 K/uL (130-400); RDW Coefficient of Variation 11.9 % (11.5-14.5); RDW Standard Deviation 40.3 fL (36.4-46.3); Red Blood Count 4.43 M/uL (4.70-6.10); White Blood Count 5.14 K/ul (4.8-10.8)
[2024-10-15 05:42] LABS: BUN Creatinine Ratio 14.3 (10-20); Calcium 8.6 mg/dl (8.6-10.3); Creatinine Clr Calc Pharmacy 86.7 ml/min; Potassium 3.9 mmol/L (3.5-5.1)
[2024-10-15] MEDS: VANCOMYCIN LEVEL ONE (06:16)
--- NOTE | 2024-10-15 12:46 | Pharmacy Report ---
Pharmacy PK ABX Note - Date of Service October 15, 2024 - Assessment and Plan Assessment 10/15: * Random vanco level ordered for today was 13.2mcg/mL which extrapolates to an MAL/AUC at the higher end of the therapeutic range (~567mg/L.hr). * Blood cultures still no growth to date. * No evidence of abscess seen on ultrasound and no bony involvement seen on x- ray. 10/14: Random level ordered today 10.7 mcg/mL suggests low end of therapeutic. Blood cultures negative. WBC improved. Will adjust dose to target mid range to ensure therapeutic dosing. 10/13: 79 year old M receiving VANCOMYCIN/CEFTRIAXONE for treatment of forearm cellulitis from laceration. Pertinent microbiologic data includes: Blood cultures pending. WBC mildly elevated, afebrile Plan Vancomycin * Vanco level drawn this morning was 13.2 which extrapolated to an AUC/MAL of ~567mg/L.hr * Continue maintenance dose: 1000 mg iv every 8 hours * Regimen is predicted to achieve target AUC/MAL of 400-600 mg/L.hr * Another vancomycin level will be ordered in the next few days or as clinically warranted. Pharmacy will continue to follow and will adjust dose/frequency as necessary. Thank you. Pharmacy has transitioned to AUC monitoring for vancomycin. AUC/MAL is the preferred PK/PD target and is associated with decreased risk of nephrotoxicity compared to traditional trough targets.
--- NOTE | 2024-10-15 15:14 | Surgery Consultation ---
Date of Consultation October 15, 2024 Assessment & Plan (1) Laceration of forearm, left: There is a significant portion of the wound with deep tissue necrosis. Will start Santyl now to assist in enzymatic debridement and apply daily. Wound culture obtained to ensure appropriate antibiotic therapy, especially if discharge is pending. If patient is discharged home, follow[facility] or [facility]. If he is inpatient tomorrow, will reassess wound. (2) Cellulitis of forearm, left: Plan I personally saw and examined this patient and agree with the assessment and plan as documented by Leonarda Lovell PA-C. Patient states he is being discharged this evening. His notes swelling and redness are significantly improved from presentation. Left arm is erythematous with some edema of the hand, some eschar noted volar forearm. states home nursing is scheduled. Reviewed use of Santyl ointment and Xeroform, follow up at wound center. Abx per hospitalist, cultures pending. EAP History of Present Illness Attending Physician: Landon Salinas MD History of Present Illness He is a 79-year-old male significant past medical history of COPD, hypertension, GERD, degenerative joint disease and history of BPH . Last Tuesday (5 days ago) he was attempting to remove a tree branch, when his arm tore against his metal shed. He reports the injury as a large skin flap. He did not seek medical attention as he felt it was too superficial to suture. He [facility] for [facility] exam, and his physician noticed his left arm was significantly swollen and red. He was advised to come to the emergency room. He was started with intravenous ceftriaxone and vancomycin and was admitted to medical floor for continuation of care. XRay completed showed no bone injuries. Wound is currently dressed with gauze. He is anxious to go home. Allergies Allergy/AdvReac Type Severity Reaction Status Date / Time No Known Allergies Allergy Verified 07/27/18 09:00 Home Medications Medication Instructions Recorded Confirmed Type albuterol sulfate 90 mcg/actuation 2 puff inhalation Q4H PRN 05/07/18 10/12/24 History aerosol inhaler Shortness Of Breath Or Wheezing lisinopril 5 mg tablet 5 mg PO QAM 05/07/18 10/12/24 History pantoprazole 40 mg tablet,delayed 40 mg PO QAM 05/07/18 10/12/24 History release Unknown Twist Inhaler 1 puff inhalation BID 12/12/18 10/12/24 History Vitamin D3 1 tab PO DAILY 10/12/24 10/12/24 History amoxicillin 500 mg-potassium 1 tab PO BID 10 days #20 tabs 10/15/24 Rx clavulanate 125 mg tablet (Augmentin) collagenase clostridium histo. 250 1 applic topical DAILY #90 grams 10/15/24 Rx unit/gram topical ointment (Santyl) gauze bandage 4 1/" X 147" #100 ea 10/15/24 Rx (Kerlix) oxycodone 5 mg tablet 5 mg PO Q8H PRN pain 5 days #14 10/15/24 Rx tabs Patient History Medical History (Updated 10/12/24 @ 19:06 by Emily Garcia MD) Anemia BPH (benign prostatic hyperplasia) STATES PATIENT TENDS TO HAVE ISSUES WITH "DRIBBLING/LEAKAGE" AND WEARS A DEPENDS. PT REMAINS VERY PRIVATE ABOUT THIS MATTER. Osteoarthritis Surgical History History of esophagogastroduodenoscopy (EGD) WITH STRETCHING H/O repair of rotator cuff Family History Other No pertinent family history Social History Smoking Status: Never smoker Second Hand Exposure: No; Do You Dip or Chew Tobacco: No; Hx Alcohol Use: Yes Alcohol type: beer Hx Substance Use: No Preferred Language: Slovenian Communication Ability: Effective Visual Impairment: No Limitations Hearing Ability: Normal Rn Disease Management Required: No Beliefs That Will Affect Care: None marital status: Current Living Situation: Spouse current occupational status: employed Other Information That Helps Us Care for You: No Feels Safe at Home: Yes Safety Concerns: Feels Safe At This Time Assistive Devices: Cane Review of Systems Review of Systems: All systems reviewed & are unremarkable except as noted in HPI & below Physical Exam Physical Exam: left forearm wound with area of deep tissue necrosis central wound, lateral edges have granulation tissue to surface. There is significant foul odor, minimal drainage. Surrounding soft tissue with erythema and is highly edematous. central portion was debrided with scissor and forceps Results & Data Vital Signs (Past 12 Hours) Vital Signs Temp Pulse Resp BP Pulse Ox O2 Del Method 10/15/24 11:56 36.6 C 70 15 145/79 H 92 Room Air 10/15/24 07:34 36.5 C 71 16 163/82 H 94 Room Air 10/15/24 07:30 Room Air PG Care Time/CCT Total # of Minutes Spent Total Time Spent with Patient: Total time spent is greater than 50% in coordination of care (as documented) at patient's floor/unit and/or counseling patient: Coding Level of Care Code 01484 OFFICE CONSULT LVL Diagnoses Laceration of forearm, left S51.812A Encounter type: initial encounter Cellulitis of forearm, left L03.114 (1) Laceration of forearm, left Encounter type: initial encounter Qualified Code(s): S51.812A - Laceration without foreign body of left forearm, initial encounter
[2024-10-15] MEDS: COLLAGENASE OINT 30 GM TUBE EXT STA (15:48)
--- NOTE | 2024-10-15 15:49 | Discharge Summary ---
Discharge Summary Date of Service October 15, 2024 Principal Dx & Hospital Course #1 = Principal Diagnosis (1) Forearm laceration: -Left forearm laceration following following following of part of the roof while cutting the tree branch -Did not sought any medical advice and the condition got worse -Has open wound with drainage and scab formation Plan: -Will ask wound care to evaluate -Advised to keep the left forearm elevated when possible -continue vancomycin/ceftriaxone for now -plastic surgery consulted, wound care consulted, appreciate recs (2) Cellulitis of left forearm: -Following resolution as above -Significant cellulitis mostly above the wound with edema of the forearm -No evidence of abscess on ultrasound on our examination -Forearm x-ray does not show any bony involvement -f/u culture results (3) Chronic obstructive pulmonary disease: -Has been on inhalers albuterol as needed -Another inhaler the patient does not know (4) GERD (gastroesophageal reflux disease): - Continue Protonix (5) Hypertension: -continue home meds (6) Arthritis: -Has significant osteoarthritis involving the extremities (7) BPH (benign prostatic hyperplasia): (8) Laceration of forearm, left: (9) Cellulitis of forearm, left: Notes For Next Care Provider He is a 79-year-old male significant past medical history of COPD, hypertension, GERD, degenerative joint disease and history of BPH apparently has had an injury involving his left forearm while he was trimming a tree bran ch. On medicine, abx ordered, plastic surgery consulted. On 10/15/2024 given course of abx for homegoing, medically stable for discharge home. To do: [ ] f/u with wound care clinic [ ] consider f/u with plastic surgery pending clinical course Medication Changes From Visit -see below Admission HPI Per Admitting Provider He is a 79-year-old male significant past medical history of COPD, hypertension, GERD, degenerative joint disease and history of BPH apparently has had an injury involving his left forearm while he was trimming a tree branch. He tried to separate the roof while the tree branch was falling and did not the process part of the roof structure fell on his left forearm and caused significant laceration injury. He did not go for any medical advice until the condition got worse as of today and [facility] to [facility] and was advised to come to the emergency room. He has mild to moderate pain involving the left forearm, more swelling above the injury than below with a spreading redness and does not have any regional adenopathy. Denies any fever and/or chills, denies any nausea and/or vomiting. And there is minimal drainage involving the wound with a black eschar on top of it. denies any respiratory symptoms given the history of COPD seems to be stable and his blood pressure noted to be high in the emergency room. he was started with intravenous ceftriaxone and vancomycin and was admitted to medical floor for continuation of care Discharge Exam Gen: A&O 3 NAD HEENT: NCAT, EOMI, not icteric. External ears normal. No rhinorrhea. Moist mucous membranes. Neck: Supple, full range of motion, no observable masses, No meningeal sign. Lungs: No Respiratory distress. CV: RRR, no edema. Abdomen: Soft, nondistended, No rebound tenderness. MSK: No joint swelling, no redness. unsteady on feet, unwrapped to looked at left arm wound, purulent, smells, necrotic tissue noted Skin: No rashes, petechiae, lesions. Normal color per patient. Neuro: Normal Gait, Grossly intact. Psych: Appropriate for situation. Updated Medication List Medication Instructions Recorded Confirmed Type albuterol sulfate 90 mcg/actuation 2 puff inhalation Q4H PRN 05/07/18 10/12/24 History aerosol inhaler Shortness Of Breath Or Wheezing lisinopril 5 mg tablet 5 mg PO QAM 05/07/18 10/12/24 History pantoprazole 40 mg tablet,delayed 40 mg PO QAM 05/07/18 10/12/24 History release Unknown Twist Inhaler 1 puff inhalation BID 12/12/18 10/12/24 History Vitamin D3 1 tab PO DAILY 10/12/24 10/12/24 History amoxicillin 500 mg-potassium 1 tab PO BID 10 days #20 tabs 10/15/24 Rx clavulanate 125 mg tablet (Augmentin) collagenase clostridium histo. 250 1 applic topical DAILY #90 grams 10/15/24 Rx unit/gram topical ointment (Santyl) gauze bandage 4 1/2" X 147" #100 ea 10/15/24 Rx (Kerlix) oxycodone 5 mg tablet 5 mg PO Q8H PRN pain 5 days #14 10/15/24 Rx tabs Hospital Stay Data Consultations 10/14/24 07:58 Consult Plastic Surgery Routine Pending Results Patient Have Any Pending Studies at Discharge: No Discharge Instructions Given to Patient (Per Discharging Provider) 1. Please finish course of antibiotics. 2. Please take care of wounds per wound care recs. 3. [facility]. 4. 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 Total Time Total Time Spent Total Time Spent (In Minutes): I spent a total of 35 minutes in direct patient care, including [id number] time with the patient and/or family, reviewing medical records, ordering and reviewing diagnostic tests, and coordinating care with other healthcare providers. This time includes: history taking, physical examination, medical decision making, counseling, ECG interpretation, imaging interpretation, lab interpretation, orders, and education, excluding time spent in the performance of separately billed services.
[2024-10-15 16:58] VITALS: BP 183/92; PULSE 75; RESP 18; TEMP 98.2; O2SAT 94
== END 2024-10-15 17:43 | disposition home health service (06) | DRG 580 ==
LOC: ED 16:22 → SUATTDRO 18:57 → 3N 18:57